=== PATIENT | male | born 1950 | race American Indian/Alaskan Native ===

== ENCOUNTER 2017-02-25 12:25 | Emergency (ER) | payer OTHER ==
[2017-02-25 12:36] VITALS: BP 145/93
[2017-02-25] MEDS ORDERED: MOTRIN PO ONE (13:03)
--- NOTE | 2017-02-25 13:28 | XRay Report ---
X-RAY LEFT HIP THREE VIEWS: 02/25/17 12:25:00 CLINICAL: Left hip pain. FINDINGS: Mild arthritis of the hips with superior acetabular eburnation and small superolateral osteophytes. No fracture or dislocation. Normal soft tissues. IMPRESSION: Mild hip arthritis.
--- NOTE | 2017-02-25 18:25 | Emergency Department Report ---
Entered by CEDRIC ZARAGOZA, acting as scribe for ANGELICA HILLS NP. ED Lower Extremity HPI - General Chief Complaint: Extremity Injury, Lower Stated Complaint: HIP PAIN LEFT Time Seen by Provider: 02/25/17 12:59 Source: patient Mode of arrival: Ambulatory Limitations: No Limitations - History of Present Illness Initial Comments: This is a 67 y/o male, nontoxic, well nourished in appearance, no acute signs of distress presents with left hip pain since yesterday. Patient states left hip pain started while lifting trash bag at work yesterday. Patient stated he works in [employer]. Patient denies any trauma or fall. Stated he was twisted holding a box to put it on a shelf and developed a sharp pain in the left hip. Denies numbness, tingling, deformity, chest pain, shortness of breath, abdominal pain, nausea or vomiting, swelling, bruising, discoloration, fever, chills, nausea and vomiting. Pain is described as sharp and 8/10 on a severity scale. Denies taking OTC meds. No alleviating factors but aggravated with weight bearing. NKDA. Patient is ambulatory. MD Complaint: other (left hip pain) Onset/Timin -: days(s) Place: work Severity: severe Severity scale (0 -10): 8 Improves With: nothing Worsens With: weight bearing Context: other (lifting and turning) Associated Symptoms: ambulatory. denies: snap/pop sensation, swelling, numbness , tingling, unable to bear weight, able to partially bear weight, other (fever, chills, nausea, vomiting, brusing, discoloration) - Related Data Previous Rx's Medication Instructions Recorded Last Taken Type Acetaminophen [Tylenol Arthritis] 650 mg PO Q6H #30 tablet.er 02/25/17 Unknown Rx Cyclobenzaprine [Flexeril] 10 mg PO TID PRN #15 tablet 02/25/17 Unknown Rx Allergies Allergy/AdvReac Type Severity Reaction Status Date / Time No Known Allergies Allergy Unverified 02/25/17 12:36 ED Review of Systems Comment: All other systems reviewed and negative Constitutional: denies: chills, fever Eyes: denies: eye pain, eye discharge, vision change ENT: denies: ear pain, throat pain Respiratory: denies: cough, shortness of breath, wheezing Cardiovascular: denies: chest pain, palpitations Endocrine: no symptoms reported Gastrointestinal: denies: nausea, vomiting Genitourinary: denies: urgency, dysuria Musculoskeletal: other (left hip pain). denies: joint swelling Skin: denies: change in color, other (bruising ) Neurological: denies: numbness, other (tingling) Psychiatric: denies: anxiety, depression Hematological/Lymphatic: denies: easy bleeding, easy bruising ED Past Medical Hx - Past Medical History Previous Medical History?: No - Surgical History Past Surgical History?: No - Social History Smoking Status: Current Every Day Smoker Substance Use Type: Alcohol - Medications Home Medications: Home Medications Medication Instructions Recorded Confirmed Last Taken Type Acetaminophen [Tylenol Arthritis] 650 mg PO Q6H #30 tablet.er 02/25/17 Unknown Rx Cyclobenzaprine [Flexeril] 10 mg PO TID PRN #15 tablet 02/25/17 Unknown Rx ED Physical Exam - General Limitations: No Limitations General appearance: alert, in no apparent distress - Head Head exam: Present: atraumatic, normocephalic, normal inspection - Eye Eye exam: Present: normal appearance, PERRL, EOMI. Absent: scleral icterus, conjunctival injection, nystagmus, periorbital swelling, periorbital tenderness Pupils: Present: normal accommodation - ENT ENT exam: Present: normal exam, normal orophraynx, TM's normal bilaterally, normal external ear exam - Neck Neck exam: Present: normal inspection, full ROM. Absent: tenderness, meningismus, lymphadenopathy, thyromegaly - Respiratory Respiratory exam: Present: normal lung sounds bilaterally. Absent: respiratory distress, wheezes, rales, rhonchi, stridor, chest wall tenderness, accessory muscle use, decreased breath sounds, prolonged expiratory - Cardiovascular Cardiovascular Exam: Present: regular rate, normal rhythm, normal heart sounds. Absent: bradycardia, tachycardia, irregular rhythm, systolic murmur, diastolic murmur, rubs, gallop - GI/Abdominal GI/Abdominal exam: Present: soft, normal bowel sounds. Absent: distended, tenderness, guarding, rebound, rigid, diminished bowel sounds - Rectal Rectal exam: Present: deferred - Extremities Exam Extremities exam: Present: normal inspection, full ROM, normal capillary refill. Absent: tenderness, pedal edema, joint swelling, calf tenderness - Expanded Lower Extremity Exam Left Hip exam: Present: normal inspection, full ROM, external rotation, internal rotation, pelvic stability. Absent: tenderness, swelling, abrasion, laceration , ecchymosis, deformity, crepidus, dislocation, erythema, shortening Upper Leg exam: Present: normal inspection, full ROM. Absent: tenderness, swelling, abrasion, laceration, ecchymosis, deformity, crepidus, dislocation, erythema Knee exam: Present: normal inspection, full ROM, full knee extension. Absent: tenderness, swelling, abrasion, laceration, ecchymosis, deformity, crepidus, dislocation, erythema, effusion, pain w/ pronation/supination, posterior draw sign, pain/laxity with valgus, pain/laxity with varus Lower Leg exam: Present: normal inspection, full ROM. Absent: tenderness, swelling, abrasion, laceration, ecchymosis, deformity, crepidus, dislocation, erythema, palpable cord, Demian's sign Ankle exam: Present: normal inspection, full ROM. Absent: tenderness, swelling , abrasion, laceration, ecchymosis, deformity, crepidus, dislocation, erythema, anterior draw sign Foot/Toe exam: Present: normal inspection, full ROM. Absent: tenderness, swelling, abrasion, laceration, ecchymosis, deformity, crepidus, dislocation, erythema, amputation, puncture wound, foreign body, calcaneal tenderness, tenderness at base of 5th metatarsal, nail avulsion, subungual hematoma Neuro vascular tendon exam: Present: no vascular compromise. Absent: pulse deficit, abnormal cap refill, motor deficit, sensory deficit, tendon deficit, extremity cold to touch, pallor, abnormal 2-point discrimination, decreased fine /light touch, foot drop, peroneal nerve deficit, significant pain with passive ROM of distal joint Gait: Positive: observed and normal - Back Exam Back exam: Present: normal inspection, full ROM. Absent: tenderness, CVA tenderness (R), CVA tenderness (L), muscle spasm, paraspinal tenderness, vertebral tenderness, rash noted - Neurological Exam Neurological exam: Present: alert, oriented X3, CN II-XII intact, normal gait, reflexes normal - Psychiatric Psychiatric exam: Present: normal affect, normal mood - Skin Skin exam: Present: warm, dry, intact, normal color. Absent: rash ED Course Vital Signs 02/25/17 12:31 Temperature 97.8 F Pulse Rate 92 H Respiratory 17 Rate Blood Pressure 145/93 O2 Sat by Pulse 100 Oximetry - Reevaluation(s) Reevaluation #1: 02/25/17 13:30 Patient is able to speak in full sentences with no signs of distress. ED Lower Extremity MDM - Medical Decision Making ED course; this is a 67-year-old male that presents with left hip strain/ arthritis 1- patient was examined myself. There is no deformity present or any abnormalities upon my exam. X-ray has been obtained and indicates arthritis of the left hip. Patient received ibuprofen in the ED. Patient notified of x-ray findings with no further questions noted by the patient. 2- examination reveals pain may be due to muscular strain/spasm. Patient be treated with acetaminophen and Flexeril. Patient was instructed not to operate any machinery while taking Flexeril due to sedation/drowsiness. 3- patient was instructed to follow up with Dr. Myers/primary care doctor in 3- 5 days or if symptoms worsen and continue such as numbness, tingling, joint swelling, redness, fever, chills, chest pain or shortness of breath return to emergency room as soon as possible. 4- patient also received crutches and educated how to use crutches by the nurse. ED Disposition Clinical Impression: Muscle strain Hip strain Qualifiers: Encounter type: initial encounter Laterality: left Qualified Code(s): S76.012A - Strain of muscle, fascia and tendon of left hip, initial encounter Disposition: - TO HOME OR SELFCARE Is pt being admited?: No Does the pt Need Aspirin: No Condition: Stable Instructions: Acetaminophen (By mouth), Cyclobenzaprine (By mouth), Crutch Instructions (ED), Hip Sprain (ED) Additional Instructions: follow up with Dr. Myers/primary care doctor in 3-5 days or if symptoms worsen and continue such as numbness, tingling, joint swelling, redness, fever, chills , chest pain or shortness of breath return to emergency room as soon as possible. Take Tylenol and Flexeril as prescribed. Do not operate heavy machinery while taking Flexeril due to sedation Prescriptions: Acetaminophen [Tylenol Arthritis] 650 mg PO Q6H #30 tablet.er Cyclobenzaprine [Flexeril] 10 mg PO TID PRN #15 tablet PRN Reason: Muscle Spasm Referrals: PRIMARY CARE, [Primary Care Provider] - 3-5 Days CHIARA AYALA MD [Staff Physician] - 3-5 Days [facility] [Outside] - 3-5 Days [facility] [Outside] - 3-5 Days Forms: Work/School Release Form(ED) This documentation as recorded by the MILA vogt ELIZABETH,accurately reflects the service I personally performed and the decisions made by ,ANGELICA HILLS, PRABHU.
== END 2017-02-25 14:33 | disposition home or self-care (01) ==
LOC: ED 12:25
DX: S76.012A Strain of muscle, fascia and tendon of left hip, initial encounter (principal); F17.200 Nicotine dependence, unspecified, uncomplicated; X50.0XXA Overexertion from strenuous movement or load, initial encounter; Y93.9 Activity, unspecified; Y92.9 Unspecified place or not applicable; Y99.9 Unspecified external cause status

== ENCOUNTER 2018-08-16 22:56 | Inpatient (IN) | payer MEDICAID, MEDICARE, OTHER ==
[2018-08-16] MEDS: SUBLIMAZE ONE ×2 (11:32→23:32)
[2018-08-16] MEDS: VERSED ONE ×2 (11:32→23:32)
[2018-08-16] MEDS ORDERED: MORPHINE IV ONE ×2 (23:00→23:18)
[2018-08-16] MEDS ORDERED: PLAVIX PO ONE (23:00)
[2018-08-16] MEDS ORDERED: HEPARIN IV ONE (23:00)
[2018-08-16] MEDS ORDERED: HEPARIN 10,000 UNITS/10 ML IV ONE ×2 (23:15→23:45)
[2018-08-16] MEDS ORDERED: NITROSTAT SL ONE (23:16)
[2018-08-16] MEDS: HEPARIN/ 0.45% NACL-25,000 UNIT/500 ML 25,000 UNIT/500 ML BAG IV SCH (23:18)
[2018-08-16 23:23] LABS: Hematocrit 44.7 % (35.5-45.6); Hemoglobin 14.5 gm/dl (11.8-15.2); Mean Corpuscular HGB Conc 32 % (32-34); Mean Corpuscular Volume 84 fl (84-94); Platelet Count 182 K/mm3 (140-440); Red Blood Count 5.32 M/mm3 (3.65-5.03); Red Cell Distribution Width 14.7 % (13.2-15.2)
[2018-08-16 23:31] LABS: INR 0.95 (0.87-1.13)
[2018-08-16] MEDS ORDERED: HEPARIN/NS 5000 UNIT/500ML(CATH LAB) 1,000 ML IR ONE (23:31)
[2018-08-16] MEDS ORDERED: XYLOCAINE 2% INFILTRATI ONE (23:31)
[2018-08-16] MEDS ORDERED: HEPARIN 10,000 UNITS/10 ML ONE (23:31)
[2018-08-16] MEDS ORDERED: NITROGLYCERIN SYRINGE 3 ML ONE (23:32)
[2018-08-16] MEDS ORDERED: NACL 0.9% 500 ML 500 ML ONE (23:32)
--- NOTE | 2018-08-16 23:32 | Emergency Department Report ---
ED Chest Pain HPI - General Chief Complaint: Chest Pain Stated Complaint: POSS STEMI Time Seen by Provider: 08/16/18 22:56 Source: EMS Mode of arrival: Stretcher Limitations: No Limitations - History of Present Illness Initial Comments: Patient is a 8-year-old male that presents emergency room with substernal chest pain that started 20 minutes prior to arrival. Patient brought in by EMS. Patient was given aspirin and nitroglycerin by EMS. Patient states the chest pain has improved a little bit. Patient states the chest pain as a 9 out of 10. Patient denies past medical history. Patient states he smokes. Patient denies shortness of breath. Patient denies chest pain radiating. Patient states the pain is better with medications and rest and worse with exertion. MD Complaint: chest pain -: Sudden Onset: during rest Pain Location: substernal Pain Radiation: none Severity: severe Severity scale (0 -10): 9 Quality: heaviness, sharp Consistency: constant Improves With: nitroglycerin, rest Worsens With: exertion re: diaphoresis. denies: nausea, vomting, dyspnea, sense of impending doom Other Symptoms: denies: cough, fever, syncope, rash, acid taste in mouth, leg swelling, palpitations, burping Treatments Prior to Arrival: aspirin, nitroglycerin, oxygen Aspirin use within the Past 7 Days: (0) No - Related Data On Oral Contraceptives: No Home Medications Medication Instructions Recorded Confirmed Last Taken Acetaminophen [Tylenol Arthritis] 650 mg PO Q6H 08/17/18 08/17/18 Unknown Motrin 200 MG tab 200 mg PO PRN 08/17/18 08/17/18 Unknown Previous Rx's Medication Instructions Recorded Last Taken Type Cyclobenzaprine [Flexeril] 10 mg PO TID PRN #15 tablet 02/25/17 03/23/16 08:00 Rx 10 mg Allergies Allergy/AdvReac Type Severity Reaction Status Date / Time No Known Allergies Allergy Verified 08/16/18 23:21 Heart Score - HEART Score History: Highly suspicious EKG: Significant ST-depression Age: > 65 Risk factors: 1-2 risk factors Troponin: < normal limit HEART Score: 7 ED Review of Systems ROS: Stated complaint: POSS STEMI Other details as noted in HPI Constitutional: denies: chills, fever Eyes: denies: eye pain, eye discharge, vision change ENT: denies: ear pain, throat pain Respiratory: denies: cough, shortness of breath, wheezing Cardiovascular: chest pain. denies: palpitations Endocrine: no symptoms reported Gastrointestinal: denies: abdominal pain, nausea, diarrhea Genitourinary: denies: urgency, dysuria Musculoskeletal: denies: back pain, joint swelling, arthralgia Skin: denies: rash, lesions Neurological: denies: headache, weakness, paresthesias Psychiatric: denies: anxiety, depression Hematological/Lymphatic: denies: easy bleeding, easy bruising ED Past Medical Hx - Past Medical History Previous Medical History?: No - Surgical History Past Surgical History?: No - Family History Family history: no significant - Social History Smoking Status: Current Every Day Smoker Substance Use Type: None - Medications Home Medications: Home Medications Medication Instructions Recorded Confirmed Last Taken Type Cyclobenzaprine [Flexeril] 10 mg PO TID PRN #15 tablet 02/25/17 08/17/18 09/0 08/07 08:00 Rx 10 mg Acetaminophen [Tylenol Arthritis] 650 mg PO Q6H 08/17/18 08/17/18 Unknown History Motrin 200 MG tab 200 mg PO PRN 08/17/18 08/17/18 Unknown History ED Physical Exam - General Limitations: No Limitations General appearance: alert, in no apparent distress - Head Head exam: Present: atraumatic, normocephalic - Eye Eye exam: Present: normal appearance - ENT ENT exam: Present: mucous membranes moist - Neck Neck exam: Present: normal inspection - Respiratory Respiratory exam: Present: normal lung sounds bilaterally. Absent: respiratory distress - Cardiovascular Cardiovascular Exam: Present: regular rate, normal rhythm. Absent: systolic mu rmur, diastolic murmur, rubs, gallop - GI/Abdominal GI/Abdominal exam: Present: soft, normal bowel sounds - Rectal Rectal exam: Present: deferred - Extremities Exam Extremities exam: Present: normal inspection - Back Exam Back exam: Present: normal inspection - Neurological Exam Neurological exam: Present: alert, oriented X3 - Psychiatric Psychiatric exam: Present: normal affect, normal mood - Skin Skin exam: Present: warm, dry, intact, normal color. Absent: rash ED Course Vital Signs 08/16/18 08/16/18 08/16/18 23:02 23:14 23:18 Temperature Pulse Rate 69 65 Respiratory 25 H 25 H 18 Rate Blood Pressure 107/70 123/91 Blood Pressure 106/70 [Right] O2 Sat by Pulse 100 Oximetry 08/17/18 01:00 Temperature 97.6 F Pulse Rate Respiratory Rate Blood Pressure Blood Pressure [Right] O2 Sat by Pulse Oximetry - Reevaluation(s) Reevaluation #1: Call received from EMS for possible STEMI. EKG was transmitted. EKG findings are consistent with STEMI. STEMI team activated. Discussed case with fire equipment inspector helper. 08/16/18 22:50 Initial assessment. Patient's findings consistent with STEMI. Patient given STEMI protocol meds. 08/16/18 22:56 Patient states pain has improved. Vital signs monitor throughout. 08/16/18 23:00 Patient transported to Disability Rater. 08/16/18 23:15 - Consultations Consultation #1: EKG from EMS sent via text to Dr. Arevalo, interventional cardiology. Dr arevalo agrees with assessment of Stemi. 08/16/18 22:50 Consultation #2: Os was consulted for admission. Hospitalist to assume care patient after cath. 08/16/18 23:34 VISHNU score - Vishnu Score Age > 65: (1) Yes Aspirin use within the Past 7 Days: (0) No 3 or more CAD Risk Factors: (0) No 2 or more Angina events in past 24 hrs: (0) No Known CAD with more than 50% Stenosis: (0) No Elevated Cardiac Markers: (0) No ST Deviation Greater than 0.5mm: (1) Yes VISHNU Score: 2 ED Medical Decision Making - Lab Data Result diagrams: 08/16/18 23:10 08/16/18 23:10 - EKG Data -: EKG Interpreted by Vt EKG shows normal: sinus rhythm, axis, intervals, QRS complexes Rate: bradycardia - EKG Data Interpretation: acute [place] - Medical Decision Making Patient's 8-year-old male who presents to emergency room for chest pain. Patient found have a STEMI. STEMI team initiated prior to arrival. Patient transferred to produce laborer. construction skills teacher consult. Patient given STEMI protocol medications. Cardiology was involved early. Discussed plan of c are with patient and family. - Differential Diagnosis STEMI. Chest pain. Critical Care Time: Yes Critical care attestation.: If time is entered above; I have spent that time in minutes in the direct care of this critically ill patient, excluding procedure time. Critical Care Time: 45 minutes ED Disposition Clinical Impression: Chest pain Qualifiers: Chest pain type: unspecified Qualified Code(s): R07.9 - Chest pain, unspecified STEMI (ST elevation myocardial infarction) Qualifiers: Involved coronary artery: unspecified coronary artery Qualified Code(s): I21.3 - ST elevation (STEMI) myocardial infarction of unspecified site Disposition: 09 OP ADMIT IP TO THIS HOSP Is pt being admited?: Yes Does the pt Need Aspirin: No Condition: Critical Time of Disposition: 23:34
[2018-08-16] MEDS ORDERED: ADRENALIN ONE (23:44)
[2018-08-16] MEDS ORDERED: XYLOCAINE CARDIAC IV ONE (23:44)
[2018-08-16] MEDS ORDERED: ATROPINE 0.1% (CARDIAC) ONE (23:44)
[2018-08-16] MEDS ORDERED: NEO SYNEPHRINE/NS Syringe(OR USE) IV ONE (23:44)
[2018-08-16] MEDS ORDERED: AGGRASTAT DRIP (12.5 MG/250 ML) 12,500 MCG/250 ML BAG IV ONE (23:53)
[2018-08-16] MEDS ORDERED: CORDARONE IV ONE (23:57)
[2018-08-16] MEDS ORDERED: NACL 0.9% 100 ML ONE (23:58)
[2018-08-17] MEDS ORDERED: HEPARIN/NS 5000 UNIT/500ML(CATH LAB) 500 ML IR ONE (00:06)
[2018-08-17 00:12] LABS: Alanine Aminotransferase 24 units/L (7-56); Albumin 4.3 g/dL (3.9-5); BUN/Creatinine Ratio 15; Blood Urea Nitrogen 17 mg/dL (9-20); Calcium 9.5 mg/dL (8.4-10.2); Hemolysis Index 65
--- NOTE | 2018-08-17 01:03 | History and Physical Report ---
REASON FOR ADMISSION: STEMI. HISTORY OF PRESENT ILLNESS: The patient is a pleasant 68-year-old -[place] gentleman with 1 hour of chest pain, who presents to the Emergency Room and found to have anterior ST elevation. He has some nausea and lightheadedness. No previous episodes of chest pain. He is not plugged in the medical system. Does not have a primary care doctor. Does smoke. Unclear about medical problems. ALLERGIES: No known drug, food, or environmental allergies. Currently, the patient was given heparin, Plavix, and aspirin in the Emergency Room and pain is improved; however, the patient is significantly uncomfortable upon interview. No hematochezia, melena, hemoptysis, rashes, fevers, or chills. No abdominal pain, no bleeding. PAST MEDICAL HISTORY: As aforementioned. REVIEW OF SYSTEMS: As aforementioned. FAMILY HISTORY: No family history of premature heart disease. He is emigrated from [place]. SOCIAL HISTORY: Positive for tobacco abuse. PHYSICAL EXAMINATION: VITAL SIGNS: Blood pressure is 100/60, heart rates sinus rhythm in the 50s and 60s. He is afebrile. O2 sat is 99% on room air. HEENT: Sclerae are anicteric. PERRLA. NECK: Supple. No mass or JVD. CHEST: Clear to auscultation bilaterally. Good air movement. CARDIOVASCULAR: Regular rate and rhythm, S1, S2. ABDOMEN: Soft, nontender, nondistended. Normoactive bowel sounds in all 4 quadrants. No mass or bruits. EXTREMITIES: No cyanosis, clubbing, or edema. Good peripheral pulses. SKIN: Intact. No rashes. DATA: EKG shows anterior ST elevation. Labs are pending. ASSESSMENT: In summary, the patient is a pleasant 68-year-old -[place] gentleman who presents with 1 hour of chest pain. EKG findings consistent with anterior ST elevation myocardial infarction. The patient is to be loaded with aspirin, Plavix, heparin. STEMI protocol was initiated. Further plans contingent on laborer stores course. JOB# [id number] SBM/NTS
--- NOTE | 2018-08-17 02:22 | Cardiac Catherization Report ---
INDICATION FOR PROCEDURE: The patient presents with anterior ST elevation myocardial infarction. PROCEDURE IN DETAIL: The patient was brought to the aquatic laborer in an urgent fashion, prepped and draped, 8 mL of 2% lidocaine used to anesthetize the right groin. He is mildly bradycardic and hypotensive. Venous and arterial sheaths were placed in the right groin via modified Seldinger technique. First, we used a balloon tipped pacemaker placed in the right ventricle under fluoroscopic guidance. Baseline heart rate set at 50. Next, we turned our attention to the left heart cath. A JR4 catheter used to cross the aortic valve under fluoroscopic guidance. Left ventriculography performed in 30 degree LUNA projection. Next, catheter flushed. Manual pullback performed with continuous pressure monitoring. Catheter used to engage the right coronary. No dampening or ventricularization. Cineangiography performed in all projections. Next, an EBU 3.75 guide used to engage the left main. No dampening or ventricularization. Cineangiography performed in all projections. FINDINGS: CORONARY ANATOMY: Right coronary is without significant disease, courses AV groove, distally bifurcates the posterior descending and posterolateral branches. The left main is without significant disease, bifurcates the left anterior descending and left circumflex. Left circumflex is without significant disease, gives off high OM trunk and a true AV groove circ. No significant disease. LAD is occluded proximally with angiographic findings consistent with atherothrombosis. Left ventriculography reveals severe anterior, anteroapical, and inferior apical hypokinesis/dyskinesis. Ejection fraction estimated at 15-20%. Aortic pressure is 120/70. LV pressure is 120, LVEDP of 22 mmHg. At this point, we obviously turned our attention to the LAD. Heparin has already been loaded. Aspirin and Plavix have been loaded. Abnormal ACT is confirmed. I used a Prowater wire to cross the lesion without difficulty. I used a 2.5 x 12 balloon to predilate the lesion. Significant thrombus burden is noted. I used a manual thrombectomy [place] catheter. Multiple passes were made. Improved thrombus characteristics were noted. Next, I used a 3.5 x 30 Resolute [place] drug-eluting stent deployed at 12 AMELIA for 30 seconds. Excellent angiographic result. Next, I used intravascular ultrasound and multiple passes were made, which revealed a well apposed and well expanded stent throughout. The remainder of the LAD distal and proximal without significant disease. Left main without significant disease. No evidence of dissection or complication. Final angiogram reveals excellent result. No complications. The patient is clinically improved, but due to severe cardiomyopathy, borderline hypotension, proximal LAD, large area of myocardium at risk, I placed an intraaortic balloon pump under fluoroscopic guidance after changing to a 7-Stateless sheath. The patient remained in sinus rhythm without dysrhythmias throughout. The temporary pacemaker was removed after watching the patient for some 30 minutes. The patient is now clinically and electrically stable and improved. We will start the heparin drip. Continue aspirin, Plavix, statin therapy, bed rest overnight. I directly supervised the administration of moderate sedation from 11:30 to 12:08 CONCLUSIONS: 1. 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 2. Successful IVUS guided and thrombectomy assisted PCI of the proximal LAD with placement of a drug-eluting stent (Jos 3.5 x 30) with excellent final angiographic and ultrasonographic results, 0% residual stenosis and VISNHU 3 flow. 3. No other significant disease in the coronary tree. 4. Severe anterior, anteroapical, and inferoapical dyskinesis/akinesis with estimated ejection fraction of 15-20% with high normal LVEDP. 5. Successful fluoroscopic-guided placement of temporary venous pacemaker. At this point, the patient is clinically and electrically improved. We will admit to ICU, bed rest, heparin drip, aspirin, Plavix, statin therapy. We will consider removal of intraaortic balloon pump in a.m. depending on his clinical status, low-dose heparin drip. We will monitor closely. Results of procedure explained to the patient and family. All questions and concerns were addressed. JOB# [id number] SBJoesph/LAURY
[2018-08-17] MEDS ORDERED: MORPHINE ONE (02:25)
[2018-08-17 03:05] LABS: Band Neutrophils # (Manual) 0.2 K/mm3; Basophils % (Manual) 0 % (0.0-1.8); Eosinophils % (Manual) 0 % (0.0-4.3); Total Cells Counted 100
[2018-08-17 03:06] LABS: Anisocytosis 1+
[2018-08-17 06:13] LABS: Amphetamine Screen,Urine PRESUMPTIVE NEGATIVE; Cannabinoid Screen,Urine PRESUMPTIVE NEGATIVE; Cocaine Screen,Urine PRESUMPTIVE NEGATIVE; Methadone Screen,Urine PRESUMPTIVE NEGATIVE; Opiate Screen,Urine PRESUMPTIVE NEGATIVE
[2018-08-17 06:25] LABS: Benzodiazepines Screen,Urine PRESUMPTIVE POSITIVE
--- NOTE | 2018-08-17 07:54 | Progress Note ---
Assessment and Plan H and P, cath report dictated. Pt is revisited in CCU and doing well. Course and plan of care d/w pt, family, and rn. Will pull IABP at 1p, hold heparin at noon and 1:2. Subjective Date of service: 08/17/18 Objective Vital Signs Temp Pulse Resp BP BP Pulse Ox 08/17/18 06:50 59 L 8 L 146/68 100 08/17/18 06:40 55 L 11 L 148/77 100 08/17/18 06:30 59 L 10 L 148/77 100 08/17/18 06:20 68 14 148/80 100 08/17/18 06:10 61 13 140/78 100 08/17/18 06:09 98.8 F 59 L 12 146/68 08/17/18 06:00 58 L 10 L 140/78 08/17/18 05:50 59 L 11 L 132/69 100 08/17/18 05:40 57 L 9 L 145/79 100 08/17/18 05:30 58 L 10 L 145/79 100 08/17/18 05:20 62 9 L 144/62 100 08/17/18 05:10 60 7 L 133/77 08/17/18 05:00 56 L 9 L 133/77 08/17/18 04:58 98.8 F 59 L 12 146/68 08/17/18 04:55 100 08/17/18 04:50 59 L 8 L 137/72 100 08/17/18 04:41 12 100 08/17/18 04:40 64 8 L 136/73 08/17/18 04:30 64 9 L 136/73 100 08/17/18 04:20 58 L 8 L 134/78 100 08/17/18 04:11 98.8 F 58 L 12 134/78 08/17/18 04:10 68 13 126/70 100 08/17/18 04:00 59 L 9 L 126/70 08/17/18 03:50 98.8 F 58 L 8 L 124/65 100 08/17/18 03:40 58 L 9 L 122/71 100 08/17/18 03:30 58 L 8 L 122/71 100 08/17/18 03:21 65 08/17/18 03:20 63 8 L 126/67 100 08/17/18 03:10 65 11 L 122/63 100 08/17/18 03:07 97.6 F 58 L 12 122/71 100 08/17/18 03:00 61 10 L 122/63 100 08/17/18 02:50 61 8 L 119/64 100 08/17/18 02:40 58 L 7 L 132/61 100 08/17/18 02:30 61 9 L 132/61 100 08/17/18 02:20 63 10 L 128/63 100 08/17/18 02:10 97.6 F 63 13 136/65 100 08/17/18 02:08 97.6 F 58 L 12 122/71 100 08/17/18 02:00 60 9 L 136/65 100 08/17/18 01:50 65 12 126/82 99 08/17/18 01:40 64 14 130/71 100 08/17/18 01:30 63 11 L 130/71 97 08/17/18 01:20 62 11 L 135/75 98 08/17/18 01:10 97.6 F 66 13 135/74 97 08/17/18 01:08 65 15 96 08/17/18 01:00 97.6 F 08/16/18 23:18 65 18 123/91 08/16/18 23:14 25 H 08/16/18 23:02 69 25 H 107/70 106/70 100 - Labs and Meds Cardiac Enzymes 08/16/18 Range/Units 23:10 AST 24 (5-40) units/L Coagulation 08/16/18 Range/Units 23:10 PT 13.1 (12.2-14.9) Sec. INR 0.95 (0.87-1.13) APTT 33.0 (24.2-36.6) Sec. CBC 08/16/18 Range/Units 23:10 WBC 8.3 (4.5-11.0) K/mm3 RBC 5.32 H (3.65-5.03) M/mm3 Hgb 14.5 (11.8-15.2) gm/dl Hct 44.7 (35.5-45.6) % Plt Count 182 (140-440) K/mm3 Comprehensive Metabolic Panel 08/16/18 Range/Units 23:10 Sodium 148 H (137-145) mmol/L Potassium 4.1 (3.6-5.0) mmol/L Chloride 113.8 H (98-107) mmol/L Carbon Dioxide 21 L (22-30) mmol/L BUN 17 (9-20) mg/dL Creatinine 1.1 (0.8-1.5) mg/dL Glucose 90 (75-100) mg/dL Calcium 9.5 (8.4-10.2) mg/dL AST 24 (5-40) units/L ALT 24 (7-56) units/L Alkaline Phosphatase 107 (35-129) units/L Total Protein 6.9 (6.3-8.2) g/dL Albumin 4.3 (3.9-5) g/dL
[2018-08-17] MEDS: ECOTRIN PO SCH (09:34)
--- NOTE | 2018-08-17 11:30 | Consultation ---
History of Present Illness - Reason for Consult Consult date: 08/17/18 Requesting physician: LINDA STEEN - History of Present Illness Patient is a 68-year-old male that presents emergency room with substernal chest pain that started 20 minutes prior to arrival. Patient brought in by EMS. Patient was given aspirin and nitroglycerin by EMS. Patient states the chest pain has improved a little bit. Patient states the chest pain as a 9 out of 10. Patient denies past medical history. Patient states he smokes. Patient denies shortness of breath. Patient denies chest pain radiating. Patient states the pain is better with medications and rest and worse with exertion. The patient was taken emergently to the catheterization laboratory technician and found to have acute atherothrombotic o cclusion of the proximal LAD with anterior ST elevation [place]. Patient had successful PCI and drug-eluting stent of the LAD. No other significant disease noted in the coronary tree. Patient was also noted to have severe anterior, anterior apical and inferior apical dyskinesis/akinesis with an estimated EF of 15-20%. Patient has been admitted to the ICU for a two-year treatment and intra-aortic balloon pump. Past History Past Medical History: No medical history Past Surgical History: No surgical history Social history: no significant social history Family history: no significant family history Medications and Allergies Allergies Allergy/AdvReac Type Severity Reaction Status Date / Time No Known Allergies Allergy Verified 08/16/18 23:21 Home Medications Medication Instructions Recorded Confirmed Last Taken Type Cyclobenzaprine [Flexeril] 10 mg PO TID PRN #15 tablet 02/25/17 08/17/18 08:00 Rx 10 mg Acetaminophen [Tylenol Arthritis] 650 mg PO Q6H 08/17/18 08/17/18 Unknown History Motrin 200 MG tab 200 mg PO PRN 08/17/18 08/17/18 Unknown History Active Meds: Active Medications Aspirin (Ecotrin) 325 mg PO QDAY DER[facility] Last Admin: 08/17/18 09:34 Dose: 325 mg Documented by: Atorvastatin Calcium (Lipitor) 40 mg PO QHS DERICK Clopidogrel Bisulfate (Plavix) 75 mg PO QDAY [facility] Heparin Sodium/Sodium Chloride (Heparin/ 0.45% Nacl-25,000 Unit/500 Ml) 25,000 unit in 500 mls @ 18 mls/hr IV TITRATE DERICK; Protocol Last Titration: 08/17/18 07:48 Dose: 13.57 units/kg/hr, 17 mls/hr Documented by: Review of Systems All systems: negative Exam - Constitutional Vitals: Temp Pulse Resp BP Pulse Ox 97.3 F L 62 9 L 148/78 100 08/17/18 10:00 08/17/18 10:40 08/17/18 10:40 08/17/18 10:40 08/17/18 10:40 General appearance: Present: no acute distress, well-nourished - EENT Eyes: Present: PERRL ENT: hearing intact, clear oral mucosa - Neck Neck: Present: supple, normal ROM - Respiratory Respiratory effort: normal Respiratory: bilateral: CTA - Cardiovascular Heart Sounds: Present: S1 & S2. Absent: rub, click - Extremities Extremities: pulses symmetrical, No edema Peripheral Pulses: within normal limits - Abdominal General gastrointestinal: Present: soft, non-tender, non-distended, normal bowel sounds Male genitourinary: Present: normal - Integumentary Integumentary: Present: clear, warm, dry - Musculoskeletal Musculoskeletal: gait normal, strength equal bilaterally - Psychiatric Psychiatric: appropriate mood/affect, intact judgment & insight - Neurologic Neurologic: CNII-XII intact, moves all extremities Results - Labs CBC & Chem 7: 08/16/18 23:10 08/16/18 23:10 Labs: Abnormal lab results 08/16/18 08/16/18 08/17/18 Range/Units 23:10 23:10 04:41 RBC 5.32 H (3.65-5.03) M/mm3 MCH 27 L (28-32) pg Lymphocytes % (Manual) 39.0 H (13.4-35.0) % Heparin Anti-Xa Level 1.23 H (0.3-0.7) U.I./ml Sodium 148 H (137-145) mmol/L Chloride 113.8 H (98-107) mmol/L Carbon Dioxide 21 L (22-30) mmol/L Assessment and Plan Acute coronary syndrome. The patient was taken emergently to the catheterization laboratory technician and found to have acute atherothrombotic occlusion of the proximal LAD with anterior ST elevation [place]. Patient had successful PCI and drug-eluting stent of the LAD. No other significant disease noted in the coronary tree. Patient was also noted to have severe anterior, anterior apical and inferior apical dyskinesis/akinesis with an estimated EF of 15-20%. Patient has been admitted to the ICU for a two- year treatment and intra-aortic balloon pump. Continue heparin drip, aspirin, Plavix and statin therapy. Cardiology following. Check lipid profile. Hypertension. Continue antibiotics as medications. Mild Hypernatremia. Follow-up BMP.
[2018-08-17] MEDS ORDERED: ALUM-MAG HYDROX-SIMETH 200-200-20MG/5ML PO ONE (12:00)
[2018-08-17] MEDS: MORPHINE IV PRN (12:04)
--- NOTE | 2018-08-17 13:13 | Consultation ---
History of Present Illness Consult date: 08/17/18 Requesting physician: LINDA STEEN Reason for consult: chest pain, other (STEMI) History of present illness: 68 yo without significant PMH, developed acute onset chest pain x 1 hour w/ some nausea, presented to ED and found to have STEMI, underwent LHC with PCI to LAD. He is feeling better now. Had very mild chest pain and just received some Morphine. Denies SOB, cough, sputum, hemoptysis. Active Medications Aspirin (Ecotrin) 325 mg PO QDAY [facility] Last Admin: 08/17/18 09:34 Dose: 325 mg Documented by: Atorvastatin Calcium (Lipitor) 40 mg PO QHS DERICK Clopidogrel Bisulfate (Plavix) 75 mg PO QDAY DERICK Heparin Sodium/Sodium Chloride (Heparin/ 0.45% Nacl-25,000 Unit/500 Ml) 25,000 unit in 500 mls @ 18 mls/hr IV TITRATE DERICK; Protocol Last Titration: 08/17/18 07:48 Dose: 13.57 units/kg/hr, 17 mls/hr Documented by: Morphine Sulfate (Morphine) 1 mg IV Q4H PRN PRN Reason: Pain, Moderate Last Admin: 08/17/18 12:04 Dose: 1 mg Documented by: Past History Past Medical History: No medical history Past Surgical History: No surgical history Social history: smoking, full code. denies: alcohol abuse, prescription drug abuse, IV drug use Family history: other (No pulm issues reported) Medications and Allergies Allergies Allergy/AdvReac Type Severity Reaction Status Date / Time No Known Allergies Allergy Verified 08/16/18 23:21 Home Medications Medication Instructions Recorded Confirmed Last Taken Type Cyclobenzaprine [Flexeril] 10 mg PO TID PRN #15 tablet 02/25/17 08/17/18 03/23/16 08:00 Rx 10 mg Acetaminophen [Tylenol Arthritis] 650 mg PO Q6H 08/17/18 08/17/18 Unknown History Motrin 200 MG tab 200 mg PO PRN 08/17/18 08/17/18 Unknown History Active Meds: Active Medications Aspirin (Ecotrin) 325 mg PO QDAY [facility] Last Admin: 08/17/18 09:34 Dose: 325 mg Documented by: Atorvastatin Calcium (Lipitor) 40 mg PO QHS DERICK Clopidogrel Bisulfate (Plavix) 75 mg PO QDAY [facility]ER[facility] Heparin Sodium/Sodium Chloride (Heparin/ 0.45% Nacl-25,000 Unit/500 Ml) 25,000 unit in 500 mls @ 18 mls/hr IV TITRATE DERICK; Protocol Last Titration: 08/17/18 07:48 Dose: 13.57 units/kg/hr, 17 mls/hr Documented by: Morphine Sulfate (Morphine) 1 mg IV Q4H PRN PRN Reason: Pain, Moderate Last Admin: 08/17/18 12:04 Dose: 1 mg Documented by: Review of Systems All systems: negative Physical Examination Vital signs: Vital Signs Pulse Resp BP Pulse Ox 69 25 H 106/70 100 08/16/18 23:02 08/16/18 23:02 08/16/18 23:02 08/16/18 23:02 General appearance: no acute distress, alert Eyes: non-icteric ENT: oropharynx moist Neck: supple Effort: normal Ascultation: Bilateral: clear Cardiovascular: regular rate and rhythm (no mrg) Gastrointestinal: normoactive bowel sounds, soft, non-tender, non-distended Integumentary: normal Extremities: no cyanosis, no edema, pink and warm normal mental status, non-focal exam, pupils equal and round, CN II-XII normal mood appropriate, affect normal Results - Laboratory Findings CBC and BMP: 08/16/18 23:10 08/16/18 23:10 PT/INR, D-dimer PT 13.1 Sec. (12.2-14.9) 08/16/18 23:10 INR 0.95 (0.87-1.13) 08/16/18 23:10 Abnormal lab findings: Abnormal Labs 08/16/18 08/16/18 08/17/18 23:10 23:10 04:41 RBC 5.32 H MCH 27 L Lymphocytes % (Manual) 39.0 H Heparin Anti-Xa Level 1.23 H Sodium 148 H Chloride 113.8 H Carbon Dioxide 21 L Assessment and Plan Imp: 1. STEMI 2. CAD 3. Ischemic cardiomyopathy 4. Chronic nicotine dependence, cigarettes 5. Hypernatremia Rec: 1. Heparin, Plavix, etc. as per cardiology 2. Check CXR 3. Stop smoking, counseled 4. Repeat labs in AM 5. Pulm-g[place] stable Plan of care reviewed w/ patient, he understands/agrees Thanks for the consult.
[2018-08-17] MEDS ORDERED: ZOFRAN ONE (14:34)
[2018-08-17 14:47] LABS: Chol/HDL Ratio 3.61 %
[2018-08-17] MEDS ORDERED: ZOFRAN IV PRN (14:54)
[2018-08-17] MEDS ORDERED: PLAVIX ONE (15:16)
[2018-08-17] MEDS ORDERED: HEPARIN/ 0.45% NACL-25,000 UNIT/500 ML ONE (15:16)
[2018-08-17] MEDS ORDERED: HEPARIN 10,000 UNITS/10 ML ONE (15:16)
--- NOTE | 2018-08-17 17:55 | XRay Report ---
FINAL REPORT EXAM: XR CHEST 1V AP HISTORY: Chest pain TECHNIQUE: upright single view chest PRIORS: None. FINDINGS: Cardiac and mediastinal contours are unremarkable. No focal pulmonary infiltrate is identified. No pleural fluid collection seen. Pulmonary vasculature is unremarkable. IMPRESSION: Negative single-view chest
[2018-08-18] MEDS: FLONASE NS SCH ×2 (02:05→10:00)
[2018-08-18 03:31] LABS: Basophils # (Auto) 0.1 K/mm3 (0.0-0.1); Basophils % (Auto) 0.7 % (0.0-1.8); Eosinophils # (Auto) 0.1 K/mm3 (0.0-0.4); Eosinophils % (Auto) 0.9 % (0.0-4.3); Hematocrit 42.2 % (35.5-45.6); Hemoglobin 13.9 gm/dl (11.8-15.2); Lymphocytes # (Auto) 2.1 K/mm3 (1.2-5.4); Lymphocytes % (Auto) 28.8 % (13.4-35.0); Mean Corpuscular HGB Conc 33 % (32-34); Mean Corpuscular Volume 84 fl (84-94); Monocytes # (Auto) 0.6 K/mm3 (0.0-0.8); Monocytes % (Auto) 8.2 % (0.0-7.3); Red Blood Count 5.05 M/mm3 (3.65-5.03); Red Cell Distribution Width 14.6 % (13.2-15.2)
[2018-08-18 03:54] LABS: BUN/Creatinine Ratio 10; Blood Urea Nitrogen 9 mg/dL (9-20); Calcium 8.5 mg/dL (8.4-10.2); Creatine Kinase MB 125.9 ng/mL (0.0-4.0); Hemolysis Index 9
[2018-08-18 04:21] LABS: Platelet Count 116 K/mm3 (140-440)
[2018-08-18] MEDS: ECOTRIN PO SCH ×2 (08:26→12:38)
[2018-08-18] MEDS: MORPHINE IV PRN (08:27)
[2018-08-18 09:44] LABS: INR 1.01 (0.87-1.13)
[2018-08-18 09:45] LABS: Partial Thromboplastin Time 47.2 Sec. (24.2-36.6)
[2018-08-18 09:55] LABS: Alanine Aminotransferase 56 units/L (7-56); Albumin 3.9 g/dL (3.9-5); BUN/Creatinine Ratio 10; Blood Urea Nitrogen 10 mg/dL (9-20); Calcium 8.6 mg/dL (8.4-10.2); Hemolysis Index 20
[2018-08-18 10:11] LABS: Creatine Kinase MB 97.4 ng/mL (0.0-4.0)
[2018-08-18 10:14] LABS: Basophils % (Auto) 0.5 % (0.0-1.8); Eosinophils # (Auto) 0.1 K/mm3 (0.0-0.4); Eosinophils % (Auto) 1.3 % (0.0-4.3); Hemoglobin 14.8 gm/dl (11.8-15.2); Lymphocytes # (Auto) 2.1 K/mm3 (1.2-5.4); Lymphocytes % (Auto) 28.3 % (13.4-35.0); Mean Corpuscular HGB Conc 33 % (32-34); Mean Corpuscular Volume 83 fl (84-94); Monocytes # (Auto) 0.6 K/mm3 (0.0-0.8); Monocytes % (Auto) 7.9 % (0.0-7.3); Platelet Count 131 K/mm3 (140-440); Red Blood Count 5.44 M/mm3 (3.65-5.03); Red Cell Distribution Width 14.7 % (13.2-15.2)
[2018-08-18] MEDS: PLAVIX PO SCH (11:00)
--- NOTE | 2018-08-18 11:55 | Progress Note ---
Assessment and Plan Assessment and plan: Acute coronary syndrome. The patient was taken emergently to the syrup machine laborer and found to have acute atherothrombotic occlusion of the proximal LAD with anterior ST elevation [place]. Patient had successful PCI and drug-eluting stent of the LAD. No other significant disease noted in the coronary tree. Patient was also noted to have severe anterior, anterior apical and inferior apical dyskinesis/akinesis with an estimated EF of 15-20%. Continue heparin drip, aspirin, Plavix and statin therapy. Cardiology following. Coronary artery disease. As above. Ischemic cardiomyopathy. As above. Hypertension. Continue antibiotics as medications. Mild Hypernatremia. Follow-up BMP. Nicotine dependence. Smoking cessation counseling. History Interval history: No new issues overnight. Patient denies chest pain. Hospitalist Physical - Constitutional Vitals: Temp Pulse Resp BP Pulse Ox 97.1 F L 64 11 L 110/67 96 08/18/18 04:00 08/18/18 06:00 08/18/18 06:00 08/18/18 06:00 08/18/18 06:00 General appearance: Present: no acute distress, well-nourished - EENT Eyes: Present: PERRL, EOM intact ENT: hearing intact, clear oral mucosa, dentition normal - Neck Neck: Present: supple, normal ROM - Respiratory Respiratory effort: normal Respiratory: bilateral: CTA - Cardiovascular Rhythm: regular Heart Sounds: Present: S1 & S2. Absent: gallop, rub - Extremities Extremities: no ischemia, No edema, Full ROM - Abdominal General gastrointestinal: soft, non-tender, non-distended, normal bowel sounds - Integumentary Integumentary: Present: clear, warm, dry - Neurologic Neurologic: CNII-XII intact, moves all extremities Results - Labs CBC & Chem 7: 08/18/18 09:26 08/18/18 09:26 Labs: Laboratory Last Values WBC 7.3 K/mm3 (4.5-11.0) 08/18/18 09:26 RBC 5.44 M/mm3 (3.65-5.03) H 08/18/18 09:26 Hgb 14.8 gm/dl (11.8-15.2) 08/18/18 09:26 Hct 45.0 % (35.5-45.6) 08/18/18 09:26 MCV 83 fl (84-94) L 08/18/18 09:26 MCH 27 pg (28-32) L 08/18/18 09:26 MCHC 33 % (32-34) 08/18/18 09:26 RDW 14.7 % (13.2-15.2) 08/18/18 09:26 Plt Count 131 K/mm3 (140-440) L 08/18/18 09:26 Lymph % (Auto) 28.3 % (13.4-35.0) 08/18/18 09:26 [place] % (Auto) 7.9 % (0.0-7.3) H 08/18/18 09:26 Eos % (Auto) 1.3 % (0.0-4.3) 08/18/18 09:26 Baso % (Auto) 0.5 % (0.0-1.8) 08/18/18 09:26 Lymph # 2.1 K/mm3 (1.2-5.4) 08/18/18 09:26 [place] # 0.6 K/mm3 (0.0-0.8) 08/18/18 09:26 Eos # 0.1 K/mm3 (0.0-0.4) 08/18/18 09:26 Baso # 0.0 K/mm3 (0.0-0.1) 08/18/18 09:26 Add Manual Diff Complete 08/16/18 23:10 Total Counted 100 08/16/18 23:10 Seg Neutrophils % 62.0 % (40.0-70.0) 08/18/18 09:26 Seg Neuts % (Manual) 51.0 % (40.0-70.0) 08/16/18 23:10 Band Neutrophils % 3.0 % 08/16/18 23:10 Lymphocytes % (Manual) 39.0 % (13.4-35.0) H 08/16/18 23:10 Reactive Lymphs % (Man) 0 % 08/16/18 23:10 Monocytes % (Manual) 7.0 % (0.0-7.3) 08/16/18 23:10 Eosinophils % (Manual) 0 % (0.0-4.3) 08/16/18 23:10 Basophils % (Manual) 0 % (0.0-1.8) 08/16/18 23:10 Metamyelocytes % 0 % 08/16/18 23:10 Myelocytes % 0 % 08/16/18 23:10 Promyelocytes % 0 % 08/16/18 23:10 Blast Cells % 0 % 08/16/18 23:10 Nucleated RBC % Not Reportable 08/16/18 23:10 Seg Neutrophils # 4.5 K/mm3 (1.8-7.7) 08/18/18 09:26 Seg Neutrophils # Man 4.2 K/mm3 (1.8-7.7) 08/16/18 23:10 Band Neutrophils # 0.2 K/mm3 08/16/18 23:10 Lymphocytes # (Manual) 3.2 K/mm3 (1.2-5.4) 08/16/18 23:10 Abs React Lymphs (Man) 0.0 K/mm3 08/16/18 23:10 Monocytes # (Manual) 0.6 K/mm3 (0.0-0.8) 08/16/18 23:10 Eosinophils # (Manual) 0.0 K/mm3 (0.0-0.4) 08/16/18 23:10 Basophils # (Manual) 0.0 K/mm3 (0.0-0.1) 08/16/18 23:10 Metamyelocytes # 0.0 K/mm3 08/16/18 23:10 Myelocytes # 0.0 K/mm3 08/16/18 23:10 Promyelocytes # 0.0 K/mm3 08/16/18 23:10 Blast Cells # 0.0 K/mm3 08/16/18 23:10 WBC Morphology Not Reportable 08/16/18 23:10 Hypersegmented Neuts Not Reportable 08/16/18 23:10 Hyposegmented Neuts Not Reportable 08/16/18 23:10 Hypogranular Neuts Not Reportable 08/16/18 23:10 Smudge Cells Not Reportable 08/16/18 23:10 Toxic Granulation Not Reportable 08/16/18 23:10 Toxic Vacuolation Not Reportable 08/16/18 23:10 Dohle Bodies Not Reportable 08/16/18 23:10 Pelger-Huet Anomaly Not Reportable 08/16/18 23:10 Geovany Rods Not Reportable 08/16/18 23:10 Platelet Estimate Appears normal 08/16/18 23:10 Clumped Platelets Not Reportable 08/16/18 23:10 Plt Clumps, EDTA Not Reportable 08/16/18 23:10 Large Platelets Not Reportable 08/16/18 23:10 Giant Platelets Not Reportable 08/16/18 23:10 Platelet Satelliting Not Reportable 08/16/18 23:10 Plt Morphology Comment Not Reportable 08/16/18 23:10 RBC Morphology Not Reportable 08/16/18 23:10 Dimorphic RBCs Not Reportable 08/16/18 23:10 Polychromasia Not Reportable 08/16/18 23:10 Hypochromasia Not Reportable 08/16/18 23:10 Poikilocytosis Not Reportable 08/16/18 23:10 Anisocytosis 1+ 08/16/18 23:10 Microcytosis Not Reportable 08/16/18 23:10 Macrocytosis Not Reportable 08/16/18 23:10 Spherocytes Not Reportable 08/16/18 23:10 Pappenheimer Bodies Not Reportable 08/16/18 23:10 Sickle Cells Not Reportable 08/16/18 23:10 Target Cells Not Reportable 08/16/18 23:10 Tear Drop Cells Not Reportable 08/16/18 23:10 Ovalocytes Not Reportable 08/16/18 23:10 Helmet Cells Not Reportable 08/16/18 23:10 [place] Bodies Not Reportable 08/16/18 23:10 Distant Rings Not Reportable 08/16/18 23:10 [place] Cells Not Reportable 08/16/18 23:10 Bite Cells Not Reportable 08/16/18 23:10 Crenated Cell Not Reportable 08/16/18 23:10 Elliptocytes Not Reportable 08/16/18 23:10 Acanthocytes (Spur) Not Reportable 08/16/18 23:10 Rouleaux Not Reportable 08/16/18 23:10 Hemoglobin C Crystals Not Reportable 08/16/18 23:10 Schistocytes Not Reportable 08/16/18 23:10 Malaria parasites Not Reportable 08/16/18 23:10 Jl Bodies Not Reportable 08/16/18 23:10 Hem Pathologist Commnt No 08/16/18 23:10 PT 13.7 Sec. (12.2-14.9) 08/18/18 06:59 INR 1.01 (0.87-1.13) 08/18/18 06:59 APTT 47.2 Sec. (24.2-36.6) H 08/18/18 06:59 Heparin Anti-Xa Level 0.50 U.I./ml (0.3-0.7) 08/18/18 06:59 Sodium 141 mmol/L (137-145) 08/18/18 09:26 Potassium 4.7 mmol/L (3.6-5.0) 08/18/18 09:26 Chloride 103.9 mmol/L (98-107) 08/18/18 09:26 Carbon Dioxide 25 mmol/L (22-30) 08/18/18 09:26 Anion Gap 17 mmol/L 08/18/18 09:26 BUN 10 mg/dL (9-20) 08/18/18 09:26 Creatinine 1.0 mg/dL (0.8-1.5) 08/18/18 09:26 Estimated GFR > 60 ml/min 08/18/18 09:26 BUN/Creatinine Ratio 10 % 08/18/18 09:26 Glucose 75 mg/dL (75-100) 08/18/18 09:26 POC Glucose 98 (70-105) 08/16/18 23:13 Calcium 8.6 mg/dL (8.4-10.2) 08/18/18 09:26 Magnesium 2.20 mg/dL (1.7-2.3) 08/18/18 09:26 Total Bilirubin 0.40 mg/dL (0.1-1.2) 08/18/18 09:26 AST 204 units/L (5-40) H 08/18/18 09:26 ALT 56 units/L (7-56) 08/18/18 09:26 Alkaline Phosphatase 104 units/L (35-129) 08/18/18 09:26 Total Creatine Kinase 1306 units/L (55-170) H 08/18/18 09:26 CK-MB (CK-2) 97.4 ng/mL (0.0-4.0) H 08/18/18 09:26 CK-MB (CK-2) Rel Index 7.4 (0-4) H 08/18/18 09:26 Troponin T 4.470 ng/mL (0.00-0.029) H* 08/18/18 09:26 Total Protein 6.5 g/dL (6.3-8.2) 08/18/18 09:26 Albumin 3.9 g/dL (3.9-5) 08/18/18 09:26 Albumin/Globulin Ratio 1.5 % 08/18/18 09:26 Triglycerides 57 mg/dL (2-149) 08/17/18 13:54 Cholesterol 152 mg/dL (50-199) 08/17/18 13:54 LDL Cholesterol Direct 107 mg/dL (50-130) 08/17/18 13:54 HDL Cholesterol 42 mg/dL (40-59) 08/17/18 13:54 Cholesterol/HDL Ratio 3.61 % 08/17/18 13:54 Urine Opiates Screen Presumptive negative 08/17/18 05:10 Urine Methadone Screen Presumptive negative 08/17/18 05:10 Ur Barbiturates Screen Presumptive negative 08/17/18 05:10 Ur Phencyclidine Scrn Presumptive negative 08/17/18 05:10 Ur Amphetamines Screen Presumptive negative 08/17/18 05:10 U Benzodiazepines Scrn Presumptive positive 08/17/18 05:10 Urine Cocaine Screen Presumptive negative 08/17/18 05:10 U Marijuana (THC) Screen Presumptive negative 08/17/18 05:10 Drugs of Abuse Note Disclamer 08/17/18 05:10
[2018-08-18] MEDS: HEPARIN/ 0.45% NACL-25,000 UNIT/500 ML 25,000 UNIT/500 ML BAG IV SCH (12:36)
--- NOTE | 2018-08-18 12:38 | Progress Note ---
Assessment and Plan 68 yo AAM: 1. s/p large acute anterior stemi * s/p IVUS, TVP, thromectomy, IABP, and primary pci w tanya * clinically vastly improved * but severe resultant stunned (hopefully) cardiomyopathy w/ EF ~15% * cont asa/plavix/statin/bb * ECG evolution reviewed w/ concerned RN * keep in ICU today * watch for mechanical complication of large ant IL * f/u tte Subjective Date of service: 08/18/18 Interval history: no complaints Objective Vital Signs Temp Pulse Resp BP Pulse Ox 08/18/18 06:00 64 11 L 110/67 96 08/18/18 05:00 59 L 9 L 108/71 97 08/18/18 04:30 11 L 96 08/18/18 04:00 97.1 F L 58 L 9 L 116/66 97 08/18/18 03:00 61 11 L 114/77 100 08/18/18 02:00 63 8 L 111/77 99 08/18/18 01:00 65 9 L 120/79 100 08/18/18 00:14 60 8 L 117/73 100 08/18/18 00:00 62 9 L 117/73 100 08/17/18 23:54 97.1 F L 08/17/18 23:00 58 L 9 L 116/78 100 08/17/18 22:10 99 08/17/18 22:00 59 L 9 L 116/69 99 08/17/18 21:00 63 7 L 121/81 100 08/17/18 20:00 97.1 F L 59 L 8 L 123/82 100 08/17/18 19:00 64 8 L 120/78 100 08/17/18 18:20 73 10 L 127/84 100 08/17/18 18:10 75 10 L 127/84 100 08/17/18 18:00 82 11 L 127/84 99 08/17/18 17:50 102 H 13 126/85 97 08/17/18 17:40 62 6 L 126/85 100 08/17/18 17:30 66 7 L 126/85 100 08/17/18 17:20 65 7 L 126/85 99 08/17/18 17:10 77 11 L 130/85 100 08/17/18 17:00 66 10 L 130/85 100 08/17/18 16:50 63 11 L 126/85 100 08/17/18 16:40 68 8 L 126/85 99 08/17/18 16:30 63 7 L 126/85 99 08/17/18 16:20 72 7 L 126/85 100 08/17/18 16:10 76 9 L 126/85 99 08/17/18 16:00 97.4 F L 62 8 L 126/85 98 08/17/18 15:50 70 9 L 137/81 99 08/17/18 15:40 82 12 137/81 98 08/17/18 15:30 66 8 L 137/81 100 08/17/18 15:20 63 7 L 137/81 99 08/17/18 15:10 59 L 9 L 132/77 08/17/18 15:00 67 14 132/81 99 08/17/18 14:50 65 9 L 132/87 08/17/18 14:40 71 15 134/91 08/17/18 14:30 73 13 134/91 08/17/18 14:20 66 12 124/84 08/17/18 14:10 65 12 118/77 08/17/18 14:00 97.3 F L 69 11 L 127/75 100 08/17/18 13:50 63 9 L 125/84 08/17/18 13:40 98.1 F 62 8 L 122/73 100 08/17/18 13:35 97.6 F 59 L 9 L 118/77 98 08/17/18 13:30 59 L 8 L 120/81 100 08/17/18 13:25 98.6 F 61 10 L 116/80 99 08/17/18 13:20 63 9 L 124/76 100 08/17/18 13:10 57 L 7 L 114/69 100 08/17/18 13:05 58 L 12 114/69 100 08/17/18 13:00 59 L 8 L 114/69 100 08/17/18 12:50 58 L 8 L 126/76 100 08/17/18 12:40 61 7 L 126/76 100 - Labs and Meds Cardiac Enzymes 08/18/18 08/18/18 08/18/18 Range/Units 03:04 09:26 09:26 AST 204 H (5-40) units/L CK-MB (CK-2) 125.9 H 97.4 H (0.0-4.0) ng/mL Coagulation 08/18/18 Range/Units 06:59 PT 13.7 (12.2-14.9) Sec. INR 1.01 (0.87-1.13) APTT 47.2 H (24.2-36.6) Sec. Lipids 08/17/18 Range/Units 13:54 Triglycerides 57 (2-149) mg/dL Cholesterol 152 (50-199) mg/dL HDL Cholesterol 42 (40-59) mg/dL Cholesterol/HDL Ratio 3.61 % CBC 08/18/18 08/18/18 Range/Units 03:04 09:26 WBC 7.4 7.3 (4.5-11.0) K/mm3 RBC 5.05 H 5.44 H (3.65-5.03) M/mm3 Hgb 13.9 14.8 (11.8-15.2) gm/dl Hct 42.2 45.0 (35.5-45.6) % Plt Count 116 L 131 L (140-440) K/mm3 Lymph # 2.1 2.1 (1.2-5.4) K/mm3 [place] # 0.6 0.6 (0.0-0.8) K/mm3 Eos # 0.1 0.1 (0.0-0.4) K/mm3 Baso # 0.1 0.0 (0.0-0.1) K/mm3 Comprehensive Metabolic Panel 08/18/18 08/18/18 Range/Units 03:04 09:26 Sodium 136 L D 141 (137-145) mmol/L Potassium 4.3 4.7 (3.6-5.0) mmol/L Chloride 103.5 103.9 (98-107) mmol/L Carbon Dioxide 25 25 (22-30) mmol/L BUN 9 10 (9-20) mg/dL Creatinine 0.9 1.0 (0.8-1.5) mg/dL Glucose 101 H 75 (75-100) mg/dL Calcium 8.5 8.6 (8.4-10.2) mg/dL AST 204 H (5-40) units/L ALT 56 (7-56) units/L Alkaline Phosphatase 104 (35-129) units/L Total Protein 6.5 (6.3-8.2) g/dL Albumin 3.9 (3.9-5) g/dL
--- NOTE | 2018-08-18 18:27 | Progress Note ---
Assessment and Plan Imp: 1. STEMI 2. CAD 3. Ischemic cardiomyopathy 4. Chronic nicotine dependence, cigarettes 5. Hypernatremia, resolved Rec: 1. Heparin, Plavix, etc. as per cardiology 2. Stop smoking, counseled 3. Pulm-gamboa stable Plan of care reviewed w/ patient, he understands/agrees Subjective Date of service: 08/18/18 Principal diagnosis: STEMI Interval history: No events. On RA. No chest pain or SOB. Active Medications Aspirin (Ecotrin) 325 mg PO QDAY [facility] Last Admin: 08/18/18 12:38 Dose: Not Given Documented by: Atorvastatin Calcium (Lipitor) 40 mg PO QHS [facility] Last Admin: 08/17/18 22:13 Dose: 40 mg Documented by: Clopidogrel Bisulfate (Plavix) 75 mg PO QDAY [facility] Last Admin: 08/18/18 11:00 Dose: 75 mg Documented by: Fluticasone Propionate (Flonase) 200 mcg NS QDAY [facility] Last Admin: 08/18/18 10:00 Dose: 200 mcg Documented by: Heparin Sodium/Sodium Chloride (Heparin/ 0.45% Nacl-25,000 Unit/500 Ml) 25,000 unit in 500 mls @ 18 mls/hr IV TITRATE [facility]; Protocol Last Admin: 08/18/18 12:36 Dose: 17 units/kg/hr, 21.283 mls/hr Documented by: Morphine Sulfate (Morphine) 1 mg IV Q4H PRN PRN Reason: Pain, Moderate Last Admin: 08/18/18 08:27 Dose: 1 mg Documented by: Ondansetron HCl (Zofran) 4 mg IV Q4H PRN PRN Reason: Nausea And Vomiting Objective Vital Signs - 12hr 08/18/18 08/18/18 08/18/18 07:00 08:00 09:00 Temperature 98.7 F Pulse Rate 67 70 75 Respiratory 8 L 12 10 L Rate Blood Pressure 115/71 118/75 113/71 O2 Sat by Pulse 96 100 95 Oximetry 08/18/18 08/18/18 08/18/18 10:00 11:00 12:00 Temperature 98.3 F Pulse Rate 75 76 65 Respiratory 9 L 12 9 L Rate Blood Pressure 113/73 116/67 94/62 O2 Sat by Pulse 98 96 100 Oximetry 08/18/18 08/18/18 08/18/18 13:00 14:00 15:00 Temperature Pulse Rate 73 62 78 Respiratory 11 L 10 L 11 L Rate Blood Pressure 102/63 88/43 98/57 O2 Sat by Pulse 96 96 98 Oximetry 08/18/18 08/18/18 16:00 17:00 Temperature 98.0 F Pulse Rate 72 64 Respiratory 13 8 L Rate Blood Pressure 84/34 83/44 O2 Sat by Pulse 97 97 Oximetry Constitutional: no acute distress, alert Eyes: non-icteric ENT: oropharynx moist Neck: supple Effort: normal Ascultation: Bilateral: clear Cardiovascular: regular rate and rhythm (no mrg) Gastrointestinal: normoactive bowel sounds, soft, non-tender, non-distended Integumentary: normal Extremities: no cyanosis, no edema, pink and warm Neurologic: normal mental status, non-focal exam, pupils equal and round, CN II- XII normal Psychiatric: mood appropriate, affect normal CBC and BMP: 08/18/18 09:26 08/18/18 09:26 ABG, PT/INR, D-dimer: PT/INR, D-dimer PT 13.7 Sec. (12.2-14.9) 08/18/18 06:59 INR 1.01 (0.87-1.13) 08/18/18 06:59 Abnormal lab findings: Abnormal Labs 08/16/18 08/16/18 08/17/18 23:10 23:10 04:41 RBC 5.32 H MCV MCH 27 L Plt Count [place] % (Auto) Lymphocytes % (Manual) 39.0 H APTT Heparin Anti-Xa Level 1.23 H Sodium 148 H Chloride 113.8 H Carbon Dioxide 21 L Glucose AST Total Creatine Kinase CK-MB (CK-2) CK-MB (CK-2) Rel Index Troponin T 08/18/18 08/18/18 08/18/18 03:04 03:04 06:59 RBC 5.05 H MCV MCH Plt Count 116 L [place] % (Auto) 8.2 H Lymphocytes % (Manual) APTT 47.2 H Heparin Anti-Xa Level Sodium 136 L D Chloride Carbon Dioxide Glucose 101 H AST Total Creatine Kinase 1492 H CK-MB (CK-2) 125.9 H CK-MB (CK-2) Rel Index 8.4 H Troponin T 4.720 H* D 08/18/18 08/18/1808/18/19 09:26 09:26 09:26 RBC 5.44 H MCV 83 L MCH 27 L Plt Count 131 L [place] % (Auto) 7.9 H Lymphocytes % (Manual) APTT Heparin Anti-Xa Level Sodium Chloride Carbon Dioxide Glucose AST 204 H Total Creatine Kinase 1306 H CK-MB (CK-2) 97.4 H CK-MB (CK-2) Rel Index 7.4 H Troponin T 4.470 H* Chest x-ray: report reviewed ("negative"; cannot pull up images)
--- NOTE | 2018-08-19 10:05 | Progress Note ---
Assessment and Plan Assessment and plan: Acute coronary syndrome. The patient was taken emergently to the label press operator and found to have acute atherothrombotic occlusion of the proximal LAD with anterior ST elevation OR. Patient had successful PCI and drug-eluting stent of the LAD. No other significant disease noted in the coronary tree. Patient was also noted to have severe anterior, anterior apical and inferior apical dyskinesis/akinesis with an estimated EF of 15-20%. Continue heparin drip, aspirin, Plavix and statin therapy. Cardiology following. STEMI. As above Coronary artery disease. As above. Ischemic cardiomyopathy. As above. Hypertension. Continue antihypertensive medications. Hyperlipidemia. Started Lipitor. Mild rhabdomyolysis. Continue IV fluids. Mild Hypernatremia. Follow-up BMP. Nicotine dependence. Smoking cessation counseling. History Interval history: No new issues overnight. Patient denies chest pain. Hospitalist Physical - Constitutional Vitals: Temp Pulse Resp BP Pulse Ox 98.5 F 66 13 102/51 98 08/19/18 08:00 08/19/18 08:00 08/19/18 08:00 08/19/18 08:00 08/19/18 09:06 General appearance: Present: no acute distress, well-nourished - EENT Eyes: Present: PERRL, EOM intact ENT: hearing intact, clear oral mucosa, dentition normal - Neck Neck: Present: supple, normal ROM - Respiratory Respiratory effort: normal Respiratory: bilateral: CTA - Cardiovascular Rhythm: regular Heart Sounds: Present: S1 & S2. Absent: gallop, rub - Extremities Extremities: no ischemia, No edema, Full ROM - Abdominal General gastrointestinal: soft, non-tender, non-distended, normal bowel sounds - Integumentary Integumentary: Present: clear, warm, dry - Neurologic Neurologic: CNII-XII intact, moves all extremities Results - Labs CBC & Chem 7: 08/18/18 09:26 08/18/18 09:26 Labs: Laboratory Last Values WBC 7.3 K/mm3 (4.5-11.0) 08/18/18 09:26 RBC 5.44 M/mm3 (3.65-5.03) H 08/18/18 09:26 Hgb 14.8 gm/dl (11.8-15.2) 08/18/18 09:26 Hct 45.0 % (35.5-45.6) 08/18/18 09:26 MCV 83 fl (84-94) L 08/18/18 09: MCH 27 pg (28-32) L 08/18/18 09:26 MCHC 33 % (32-34) 08/18/18 09:26 RDW 14.7 % (13.2-15.2) 08/18/18 09:26 Plt Count 131 K/mm3 (140-440) L 08/18/18 09:26 Lymph % (Auto) 28.3 % (13.4-35.0) 08/18/18 09:26 [place] % (Auto) 7.9 % (0.0-7.3) H 08/18/18 09:26 Eos % (Auto) 1.3 % (0.0-4.3) 08/18/18 09:26 Baso % (Auto) 0.5 % (0.0-1.8) 08/18/18 09: Lymph # 2.1 K/mm3 (1.2-5.4) 08/18/18 09:26 [place] # 0.6 K/mm3 (0.0-0.8) 08/18/18 09:26 Eos # 0.1 K/mm3 (0.0-0.4) 08/18/18 09:26 Baso # 0.0 K/mm3 (0.0-0.1) 08/18/18 09:26 Add Manual Diff Complete 08/16/18 23:10 Total Counted 100 08/16/18 23:10 Seg Neutrophils % 62.0 % (40.0-70.0) 08/18/18 09:26 Seg Neuts % (Manual) 51.0 % (40.0-70.0) 08/16/18 23:10 Band Neutrophils % 3.0 % 08/16/18 23:10 Lymphocytes % (Manual) 39.0 % (13.4-35.0) H 08/16/18 23:10 Reactive Lymphs % (Man) 0 % 08/16/18 23:10 Monocytes % (Manual) 7.0 % (0.0-7.3) 08/16/18 23:10 Eosinophils % (Manual) 0 % (0.0-4.3) 08/16/18 23:10 Basophils % (Manual) 0 % (0.0-1.8) 08/16/18 23:10 Metamyelocytes % 0 % 08/16/18 23:10 Myelocytes % 0 % 08/16/18 23:10 Promyelocytes % 0 % 08/16/18 23:10 Blast Cells % 0 % 08/16/18 23:10 Nucleated RBC % Not Reportable 08/16/18 23:10 Seg Neutrophils # 4.5 K/mm3 (1.8-7.7) 08/18/18 09:26 Seg Neutrophils # Man 4.2 K/mm3 (1.8-7.7) 08/16/18 23:10 Band Neutrophils # 0.2 K/mm3 08/16/18 23:10 Lymphocytes # (Manual) 3.2 K/mm3 (1.2-5.4) 08/16/18 23:10 Abs React Lymphs (Man) 0.0 K/mm3 08/16/18 23:10 Monocytes # (Manual) 0.6 K/mm3 (0.0-0.8) 08/16/18 23:10 Eosinophils # (Manual) 0.0 K/mm3 (0.0-0.4) 08/16/18 23:10 Basophils # (Manual) 0.0 K/mm3 (0.0-0.1) 08/16/18 23:10 Metamyelocytes # 0.0 K/mm3 08/16/18 23:10 Myelocytes # 0.0 K/mm3 08/16/18 23:10 Promyelocytes # 0.0 K/mm3 08/16/18 23:10 Blast Cells # 0.0 K/mm3 08/16/18 23:10 WBC Morphology Not Reportable 08/16/18 23:10 Hypersegmented Neuts Not Reportable 08/16/18 23:10 Hyposegmented Neuts Not Reportable 08/16/18 23:10 Hypogranular Neuts Not Reportable 08/16/18 23:10 Smudge Cells Not Reportable 08/16/18 23:10 Toxic Granulation Not Reportable 08/16/18 23:10 Toxic Vacuolation Not Reportable 08/16/18 23:10 Dohle Bodies Not Reportable 08/16/18 23:10 Pelger-Huet Anomaly Not Reportable 08/16/18 23:10 Geovany Rods Not Reportable 08/16/18 23:10 Platelet Estimate Appears normal 08/16/18 23:10 Clumped Platelets Not Reportable 08/16/18 23:10 Plt Clumps, EDTA Not Reportable 08/16/18 23:10 Large Platelets Not Reportable 08/16/18 23:10 Giant Platelets Not Reportable 08/16/18 23:10 Platelet Satelliting Not Reportable 08/16/18 23:10 Plt Morphology Comment Not Reportable 08/16/18 23:10 RBC Morphology Not Reportable 08/16/18 23:10 Dimorphic RBCs Not Reportable 08/16/18 23:10 Polychromasia Not Reportable 08/16/18 23:10 Hypochromasia Not Reportable 08/16/18 23:10 Poikilocytosis Not Reportable 08/16/18 23:10 Anisocytosis 1+ 08/16/18 23:10 Microcytosis Not Reportable 08/16/18 23:10 Macrocytosis Not Reportable 08/16/18 23:10 Spherocytes Not Reportable 08/16/18 23:10 Pappenheimer Bodies Not Reportable 08/16/18 23:10 Sickle Cells Not Reportable 08/16/18 23:10 Target Cells Not Reportable 08/16/18 23:10 Tear Drop Cells Not Reportable 08/16/18 23:10 Ovalocytes Not Reportable 08/16/18 23:10 Helmet Cells Not Reportable 08/16/18 23:10 [place] Bodies Not Reportable 08/16/18 23:10 [place] Rings Not Reportable 08/16/18 23:10 [place] Cells Not Reportable 08/16/18 23:10 Bite Cells Not Reportable 08/16/18 23:10 Crenated Cell Not Reportable 08/16/18 23:10 Elliptocytes Not Reportable 08/16/18 23:10 Acanthocytes (Spur) Not Reportable 08/16/18 23:10 Rouleaux Not Reportable 08/16/18 23:10 Hemoglobin C Crystals Not Reportable 08/16/18 23:10 Schistocytes Not Reportable 08/16/18 23:10 Malaria parasites Not Reportable 08/16/18 23:10 Jl Bodies Not Reportable 08/16/18 23:10 Hem Pathologist Commnt No 08/16/18 23:10 PT 13.7 Sec. (12.2-14.9) 08/18/18 06:59 INR 1.01 (0.87-1.13) 08/18/18 06:59 APTT 47.2 Sec. (24.2-36.6) H 08/18/18 06:59 Activated Clotting Time 235 (74-137) H 08/16/18 23:54 Heparin Anti-Xa Level 0.50 U.I./ml (0.3-0.7) 08/18/18 06:59 Sodium 141 mmol/L (137-145) 08/18/18 09:26 Potassium 4.7 mmol/L (3.6-5.0) 08/18/18 09:26 Chloride 103.9 mmol/L (98-107) 08/18/18 09:26 Carbon Dioxide 25 mmol/L (22-30) 08/18/18 09:26 Anion Gap 17 mmol/L 08/18/18 09:26 BUN 10 mg/dL (9-20) 08/18/18 09:26 Creatinine 1.0 mg/dL (0.8-1.5) 08/18/18 09:26 Estimated GFR > 60 ml/min 08/18/18 09:26 BUN/Creatinine Ratio 10 % 08/18/18 09:26 Glucose 75 mg/dL (75-100) 08/18/18 09:26 POC Glucose 98 (70-105) 08/16/18 23:13 Calcium 8.6 mg/dL (8.4-10.2) 08/18/18 09:26 Magnesium 2.20 mg/dL (1.7-2.3) 08/18/18 09:26 Total Bilirubin 0.40 mg/dL (0.1-1.2) 08/18/18 09:26 AST 204 units/L (5-40) H 08/18/18 09:26 ALT 56 units/L (7-56) 08/18/18 09:26 Alkaline Phosphatase 104 units/L (35-129) 08/18/18 09:26 Total Creatine Kinase 1306 units/L (55-170) H 08/18/18 09:26 CK-MB (CK-2) 97.4 ng/mL (0.0-4.0) H 08/18/18 09:26 CK-MB (CK-2) Rel Index 7.4 (0-4) H 08/18/18 09:26 Troponin T 4.470 ng/mL (0.00-0.029) H* 08/18/18 09:26 Total Protein 6.5 g/dL (6.3-8.2) 08/18/18 09:26 Albumin 3.9 g/dL (3.9-5) 08/18/18 09:26 Albumin/Globulin Ratio 1.5 % 08/18/18 09:26 Triglycerides 57 mg/dL (2-149) 08/17/18 13:54 Cholesterol 152 mg/dL (50-199) 08/17/18 13:54 LDL Cholesterol Direct 107 mg/dL (50-130) 08/17/18 13:54 HDL Cholesterol 42 mg/dL (40-59) 08/17/18 13:54 Cholesterol/HDL Ratio 3.61 % 08/17/18 13:54 Urine Opiates Screen Presumptive negative 08/17/18 05:10 Urine Methadone Screen Presumptive negative 08/17/18 05:10 Ur Barbiturates Screen Presumptive negative 08/17/18 05:10 Ur Phencyclidine Scrn Presumptive negative 08/17/18 05:10 Ur Amphetamines Screen Presumptive negative 08/17/18 05:10 U Benzodiazepines Scrn Presumptive positive 08/17/18 05:10 Urine Cocaine Screen Presumptive negative 08/17/18 05:10 U Marijuana (THC) Screen Presumptive negative 08/17/18 05:10 Drugs of Abuse Note Disclamer 08/17/18 05:10
[2018-08-19] MEDS: ECOTRIN PO SCH (11:10)
[2018-08-19] MEDS: PLAVIX PO SCH (11:10)
[2018-08-19] MEDS: FLONASE NS SCH (11:11)
--- NOTE | 2018-08-19 11:23 | Progress Note ---
Assessment and Plan s/p large acute anterior stemi, s/p IVUS, TVP, thromectomy, IABP, and primary pci w tanya. Echo reviewed - mild to mod LVH, EF 20-25%, RV systolic function mod reduced, LV chamber size mildly dilated. Currently stable cardiac status, cont present cardiac management including cont asa/plavix/statin/bb. Consider addition of ACEI/ARB if BPs permit. Tx out of CCU to telemetry. Increase activity/ambulation. Possible d/c home in AM. The patient has been seen in conjunction with Dr. March who agrees with the assessment and plan of care. - Patient Problems (1) STEMI (ST elevation myocardial infarction) Current Visit: Yes Status: Acute Qualifiers: Involved coronary artery: unspecified coronary artery Qualified Code(s): I21.3 - ST elevation (STEMI) myocardial infarction of unspecified site (2) CAD (coronary artery disease) Current Visit: Yes Status: Chronic (3) Stented coronary artery Current Visit: Yes Status: Chronic (4) Ischemic cardiomyopathy Current Visit: Yes Status: Chronic (5) Tobacco use Current Visit: Yes Status: Chronic Subjective Date of service: 08/19/18 Principal diagnosis: STEMI Interval history: pt resting in bed, no current cardiac complaints. Objective Last Vital Signs Temp 98.5 F 08/19/18 08:00 Pulse 92 H 08/19/18 10:00 Resp 12 08/19/18 10:00 BP 102/51 08/19/18 10:00 Pulse Ox 99 08/19/18 10:00 - Physical Examination General: No Apparent Distress HEENT: Positive: PERRL, Normocephaly, Mucus Membranes Moist Neck: Positive: neck supple, trachea midline Cardiac: Positive: Reg Rate and Rhythm, S1/S2 Lungs: Positive: clear to auscultation Neuro: Positive: Grossly Intact Abdomen: Positive: Soft. Negative: Tender Skin: Positive: Clear. Negative: Rash, Wound Musculoskeletal: No Pain Extremities: Absent: edema - Imaging and Cardiology EKG: report reviewed, image reviewed Echo: report reviewed (mild to mod LVH, EF 20-25%, RV systolic function mod reduced, LV chamber size mildly dilated) Cardiac cath: report reviewed (PCI of prox LAD with TANYA, EF 15-20%) - Telemetry EKG Rhythm: Sinus Rhythm
--- NOTE | 2018-08-19 14:27 | Progress Note ---
Assessment and Plan Pulm status is stable. Will sign off. Call if questions. Subjective Date of service: 08/19/18 Principal diagnosis: STEMI Interval history: No acute events. Cards to move out of ICU today. Objective Vital Signs - 12hr 08/19/18 08/19/18 08/19/18 03:00 03:56 04:00 Temperature 98.3 F Pulse Rate 76 74 Respiratory 10 L 9 L Rate Blood Pressure 102/51 102/51 O2 Sat by Pulse 98 97 Oximetry 08/19/18 08/19/18 08/19/18 05:00 06:00 07:00 Temperature Pulse Rate 62 69 72 Respiratory 11 L 8 L 8 L Rate Blood Pressure 102/51 102/51 102/51 O2 Sat by Pulse 96 96 99 Oximetry 08/19/18 08/19/18 08/19/18 08:00 09:00 09:06 Temperature 98.5 F Pulse Rate 66 77 Respiratory 13 15 Rate Blood Pressure 102/51 102/51 O2 Sat by Pulse 97 96 98 Oximetry 08/19/18 08/19/18 10:00 14:25 Temperature Pulse Rate 92 H Respiratory 12 Rate Blood Pressure 102/51 O2 Sat by Pulse 99 96 Oximetry Constitutional: no acute distress, alert Eyes: non-icteric ENT: oropharynx moist Neck: supple Effort: normal Ascultation: Bilateral: clear Cardiovascular: regular rate and rhythm (no mrg) Gastrointestinal: normoactive bowel sounds, soft, non-tender, non-distended Integumentary: normal Extremities: no cyanosis, no edema, pink and warm Neurologic: normal mental status, non-focal exam, pupils equal and round, CN II- XII normal Psychiatric: mood appropriate, affect normal CBC and BMP: 08/18/18 09:26 08/18/18 09:26 ABG, PT/INR, D-dimer: PT/INR, D-dimer PT 13.7 Sec. (12.2-14.9) 08/18/18 06:59 INR 1.01 (0.87-1.13) 08/18/18 06:59 Abnormal lab findings: Abnormal Labs 08/16/18 08/16/18 08/16/18 23:10 23:10 23:41 RBC 5.32 H MCV MCH 27 L Plt Count [place] % (Auto) Lymphocytes % (Manual) 39.0 H APTT Activated Clotting Time 175 H Heparin Anti-Xa Level Sodium 148 H Chloride 113.8 H Carbon Dioxide 21 L Glucose AST Total Creatine Kinase CK-MB (CK-2) CK-MB (CK-2) Rel Index Troponin T 08/16/18 08/17/18 08/18/18 23:54 04:41 03:04 RBC 5.05 H MCV MCH Plt Count 116 L [place] % (Auto) 8.2 H Lymphocytes % (Manual) APTT Activated Clotting Time 235 H Heparin Anti-Xa Level 1.23 H Sodium Chloride Carbon Dioxide Glucose AST Total Creatine Kinase CK-MB (CK-2) CK-MB (CK-2) Rel Index Troponin T 08/18/18 08/18/18 08/18/18 03:04 06:59 09:26 RBC MCV MCH Plt Count [place] % (Auto) Lymphocytes % (Manual) APTT 47.2 H Activated Clotting Time Heparin Anti-Xa Level Sodium 136 L D Chloride Carbon Dioxide Glucose 101 H AST Total Creatine Kinase 1492 H 1306 H CK-MB (CK-2) 125.9 H 97.4 H CK-MB (CK-2) Rel Index 8.4 H 7.4 H Troponin T 4.720 H* D 08/18/18 08/18/18 09:26 09:26 RBC 5.44 H MCV 83 L MCH 27 L Plt Count 131 L [place] % (Auto) 7.9 H Lymphocytes % (Manual) APTT Activated Clotting Time Heparin Anti-Xa Level Sodium Chloride Carbon Dioxide Glucose AST 204 H Total Creatine Kinase CK-MB (CK-2) CK-MB (CK-2) Rel Index Troponin T 4.470 H*
[2018-08-19] MEDS: LOPRESSOR PO SCH (22:32)
[2018-08-20 07:06] LABS: Basophils % (Auto) 0.8 % (0.0-1.8); Eosinophils # (Auto) 0.1 K/mm3 (0.0-0.4); Eosinophils % (Auto) 1.4 % (0.0-4.3); Hematocrit 40.8 % (35.5-45.6); Hemoglobin 13.6 gm/dl (11.8-15.2); Lymphocytes % (Auto) 33.4 % (13.4-35.0); Mean Corpuscular HGB Conc 33 % (32-34); Mean Corpuscular Volume 82 fl (84-94); Monocytes # (Auto) 0.6 K/mm3 (0.0-0.8); Monocytes % (Auto) 9.7 % (0.0-7.3); Platelet Count 133 K/mm3 (140-440); Red Blood Count 4.98 M/mm3 (3.65-5.03); Red Cell Distribution Width 14.3 % (13.2-15.2)
[2018-08-20 07:12] LABS: BUN/Creatinine Ratio 13; Blood Urea Nitrogen 14 mg/dL (9-20); Calcium 8.8 mg/dL (8.4-10.2); Hemolysis Index 1
[2018-08-20] MEDS: FLONASE NS SCH (09:47)
[2018-08-20] MEDS: PLAVIX PO SCH (09:48)
[2018-08-20] MEDS: LOPRESSOR PO SCH (09:48)
[2018-08-20] MEDS: ECOTRIN PO SCH (09:48)
[2018-08-20 09:49] VITALS: BP 132/76
--- NOTE | 2018-08-20 11:00 | Progress Note ---
Assessment and Plan Currently stable cardiac status, cont present cardiac management including cont asa/plavix/statin/bb. ACEI/ARB and/or aldactone not initiated yet due to borderline BPs. Will readdress as OP. Pt may discharge home from cardiology standpoint. Follow up in our [place] office with Dr. Wendy Arevalo on 09/02/2018 @ 2:45PM. The patient has been seen in conjunction with Dr. March who agrees with the assessment and plan of care. - Patient Problems (1) STEMI (ST elevation myocardial infarction) Current Visit: Yes Status: Acute Qualifiers: Involved coronary artery: unspecified coronary artery Qualified Code(s): I21.3 - ST elevation (STEMI) myocardial infarction of unspecified site (2) CAD (coronary artery disease) Current Visit: Yes Status: Chronic (3) Stented coronary artery Current Visit: Yes Status: Chronic (4) Ischemic cardiomyopathy Current Visit: Yes Status: Chronic (5) Tobacco use Current Visit: Yes Status: Chronic Subjective Date of service: 08/20/18 Principal diagnosis: STEMI Interval history: pt resting in bed, no current cardiac complaints. Objective Last Vital Signs Temp 98.0 F 08/20/18 09:01 Pulse 76 08/20/18 09:48 Resp 18 08/20/18 09:00 BP 132/76 08/20/18 09:48 Pulse Ox 98 08/20/18 09:00 - Physical Examination General: No Apparent Distress HEENT: Positive: PERRL, Normocephaly, Mucus Membranes Moist Neck: Positive: neck supple, trachea midline Cardiac: Positive: Reg Rate and Rhythm, S1/S2 Lungs: Positive: clear to auscultation Neuro: Positive: Grossly Intact Abdomen: Positive: Soft. Negative: Tender Skin: Positive: Clear. Negative: Rash, Wound Musculoskeletal: No Pain Extremities: Absent: edema - Labs and Meds CBC 08/20/18 Range/Units 06:30 WBC 5.9 (4.5-11.0) K/mm3 RBC 4.98 (3.65-5.03) M/mm3 Hgb 13.6 (11.8-15.2) gm/dl Hct 40.8 (35.5-45.6) % Plt Count 133 L (140-440) K/mm3 Lymph # 2.0 (1.2-5.4) K/mm3 [place] # 0.6 (0.0-0.8) K/mm3 Eos # 0.1 (0.0-0.4) K/mm3 Baso # 0.0 (0.0-0.1) K/mm3 Comprehensive Metabolic Panel 08/20/18 Range/Units 06:30 Sodium 141 (137-145) mmol/L Potassium 4.3 (3.6-5.0) mmol/L Chloride 105.7 (98-107) mmol/L Carbon Dioxide 26 (22-30) mmol/L BUN 14 (9-20) mg/dL Creatinine 1.1 (0.8-1.5) mg/dL Glucose 93 (75-100) mg/dL Calcium 8.8 (8.4-10.2) mg/dL - Imaging and Cardiology EKG: report reviewed, image reviewed Echo: report reviewed (mild to mod LVH, EF 20-25%, RV systolic function mod reduced, LV chamber size mildly dilated) Cardiac cath: report reviewed (PCI of prox LAD with JAIR, EF 15-20%) - Telemetry EKG Rhythm: Sinus Rhythm
--- NOTE | 2018-08-20 11:12 | Discharge Summary ---
Providers - Providers Date of Admission: 08/17/18 00:27 Date of discharge: 08/20/18 Attending physician: LINDA STEEN 08/17/18 Consult to Cardiac Rehabilitation [CONS] Routine Reason For Exam: post pci 08/17/18 07:57 Consult to Physician [CONS] Routine Comment: Consulting Provider: DICK JORGENSEN Physician Instructions: Reason For Exam: stemi 08/17/18 07:58 Consult to Physician [CONS] Routine Comment: Consulting Provider: SHAYY FRANKS Physician Instructions: Reason For Exam: stemi Primary care physician: SET ILLUSTRATOR Hospitalization Reason for admission: STEMI Condition: Critical Pertinent studies: LHC with PCI and echo - see reports Procedures: LHC with PCI and echo - see reports Hospital course: The pt is a 68 YO male who presented with complaints of chest pain and was found to have anterior STEMI. Code STEMI was activated and he was taken to the research laboratory specialist emergently. He underwent LHC with PCI of prox LAD - see dictated cath report. He required IABP following PCI which was successfully weaned and discontinued the following day. Transthoracic echo showed mild to mod LVH, EF 20-25%, RV systolic function mod reduced, LV chamber size mildly dilated. He is medically stable for discharge home today. He is to follow up in our [place] office with Dr. Wendy Steen on 09/02/2018 @ 2:45PM. Disposition: DC-01 TO HOME OR SELFCARE - Discharge Diagnoses (1) STEMI (ST elevation myocardial infarction) Status: Acute Qualifiers: Involved coronary artery: unspecified coronary artery Qualified Code(s): I21.3 - ST elevation (STEMI) myocardial infarction of unspecified site (2) CAD (coronary artery disease) Status: Chronic (3) Stented coronary artery Status: Chronic (4) Ischemic cardiomyopathy Status: Chronic (5) Tobacco use Status: Chronic Core Measure Documentation - Palliative Care Palliative Care/ Comfort Measures: Not Applicable - Core Measures Any of the following diagnoses?: acute ND - Acute ND Discharge Requirements Aspirin at discharge: Yes GHAZAL/ARB for LVSD if EF <40%: No Reason for no GHAZAL/ARB: Hypotension Beta anna at discharge: Yes Statin for LDL = or >100 mg/dl on DC: Yes Exam - Constitutional Vitals: Temp Pulse Resp BP Pulse Ox 98.0 F 76 18 132/76 98 08/20/18 09:01 08/20/18 09:48 08/20/18 09:00 08/20/18 09:48 08/20/18 09:00 General appearance: Present: no acute distress - EENT Eyes: Present: PERRL, EOM intact ENT: hearing intact, clear oral mucosa, dentition normal - Neck Neck: Present: supple, normal ROM - Respiratory Respiratory effort: normal Respiratory: bilateral: CTA - Cardiovascular Rhythm: regular Heart Sounds: Present: S1 & S2 - Extremities Extremities: no ischemia, pulses intact, pulses symmetrical Peripheral Pulses: within normal limits - Abdominal General gastrointestinal: Present: soft, non-tender - Integumentary Integumentary: Present: clear, warm, dry - Musculoskeletal Musculoskeletal: strength equal bilaterally - Psychiatric Psychiatric: appropriate mood/affect - Neurologic Neurologic: CNII-XII intact Plan Activity: advance as tolerated Diet: low fat, low cholesterol, low salt Wound: open to air, keep clean and dry, per your surgeon's advice Follow up with: PRIMARY CARE, [Primary Care Provider] - 3-5 Days LINDA STEEN MD [Staff Physician] - 7 Days (Follow up in our [place] office with Dr. Wendy Steen on 09/02/2018 @ 2:45PM. ) Prescriptions: AtorvaSTATin [Lipitor] 40 mg PO QHS #30 tablet Aspirin EC [Aspirin Enteric Coated TAB] 325 mg PO QDAY #30 tablet Clopidogrel [Plavix] 75 mg PO QDAY #30 tablet Metoprolol [Lopressor TAB] 12.5 mg PO BID #60 tablet
--- NOTE | 2018-08-20 12:34 | Progress Note ---
Assessment and Plan Assessment and plan: Acute coronary syndrome. The patient was taken emergently to the label fuser tender and found to have acute atherothrombotic occlusion of the proximal LAD with anterior ST elevation MN. Patient had successful PCI and drug-eluting stent of the LAD. No other significant disease noted in the coronary tree. Patient was also noted to have severe anterior, anterior apical and inferior apical dyskinesis/akinesis with an estimated EF of 15-20%. Continue heparin drip, aspirin, Plavix and statin therapy. Cardiology following. STEMI. As above Coronary artery disease. Ischemic cardiomyopathy. Hypertension. Continue antihypertensive medications. Hyperlipidemia. Started Lipitor. Mild rhabdomyolysis. Continue IV fluids. Mild Hypernatremia. Follow-up BMP. Nicotine dependence. Smoking cessation counseling. Stable. Discharge home today History Interval history: presented with chest pain, now resolved Hospitalist Physical - Constitutional Vitals: Temp Pulse Resp BP Pulse Ox 98.0 F 76 18 132/76 98 08/20/18 09:01 08/20/18 09:48 08/20/18 09:00 08/20/18 09:48 08/20/18 09:00 General appearance: Present: no acute distress - EENT Eyes: Present: PERRL ENT: hearing intact - Neck Neck: Present: supple - Respiratory Respiratory: bilateral: CTA - Extremities Extremities: No edema - Abdominal General gastrointestinal: soft, non-tender, non-distended, normal bowel sounds - Psychiatric Psychiatric: appropriate mood/affect - Neurologic Neurologic: CNII-XII intact, moves all extremities Results - Labs CBC & Chem 7: 08/20/18 06:30 08/20/18 06:30 Labs: Laboratory Last Values WBC 5.9 K/mm3 (4.5-11.0) 08/20/18 06:30 RBC 4.98 M/mm3 (3.65-5.03) 08/20/18 06:30 Hgb 13.6 gm/dl (11.8-15.2) 08/20/18 06:30 Hct 40.8 % (35.5-45.6) 08/20/18 06:30 MCV 82 fl (84-94) L 08/20/18 06:30 MCH 27 pg (28-32) L 08/20/18 06:30 MCHC 33 % (32-34) 08/20/18 06:30 RDW 14.3 % (13.2-15.2) 08/20/18 06:30 Plt Count 133 K/mm3 (140-440) L 08/20/18 06:30 Lymph % (Auto) 33.4 % (13.4-35.0) 08/20/18 06:30 [place] % (Auto) 9.7 % (0.0-7.3) H 08/20/18 06:30 Eos % (Auto) 1.4 % (0.0-4.3) 08/20/18 06:30 Baso % (Auto) 0.8 % (0.0-1.8) 08/20/18 06:30 Lymph # 2.0 K/mm3 (1.2-5.4) 08/20/18 06:30 [place] # 0.6 K/mm3 (0.0-0.8) 08/20/18 06:30 Eos # 0.1 K/mm3 (0.0-0.4) 08/20/18 06:30 Baso # 0.0 K/mm3 (0.0-0.1) 08/20/18 06:30 Add Manual Diff Complete 08/16/18 23:10 Total Counted 100 08/16/18 23:10 Seg Neutrophils % 54.7 % (40.0-70.0) 08/20/18 06:30 Seg Neuts % (Manual) 51.0 % (40.0-70.0) 08/16/18 23:10 Band Neutrophils % 3.0 % 08/16/18 23:10 Lymphocytes % (Manual) 39.0 % (13.4-35.0) H 08/16/18 23:10 Reactive Lymphs % (Man) 0 % 08/16/18 23:10 Monocytes % (Manual) 7.0 % (0.0-7.3) 08/16/18 23:10 Eosinophils % (Manual) 0 % (0.0-4.3) 08/16/18 23:10 Basophils % (Manual) 0 % (0.0-1.8) 08/16/18 23:10 Metamyelocytes % 0 % 08/16/18 23:10 Myelocytes % 0 % 08/16/18 23:10 Promyelocytes % 0 % 08/16/18 23:10 Blast Cells % 0 % 08/16/18 23:10 Nucleated RBC % Not Reportable 08/16/18 23:10 Seg Neutrophils # 3.2 K/mm3 (1.8-7.7) 08/20/18 06:30 Seg Neutrophils # Man 4.2 K/mm3 (1.8-7.7) 08/16/18 23:10 Band Neutrophils # 0.2 K/mm3 08/16/18 23:10 Lymphocytes # (Manual) 3.2 K/mm3 (1.2-5.4) 08/16/18 23:10 Abs React Lymphs (Man) 0.0 K/mm3 08/16/18 23:10 Monocytes # (Manual) 0.6 K/mm3 (0.0-0.8) 08/16/18 23:10 Eosinophils # (Manual) 0.0 K/mm3 (0.0-0.4) 08/16/18 23:10 Basophils # (Manual) 0.0 K/mm3 (0.0-0.1) 08/16/18 23:10 Metamyelocytes # 0.0 K/mm3 08/16/18 23:10 Myelocytes # 0.0 K/mm3 08/16/18 23:10 Promyelocytes # 0.0 K/mm3 08/16/18 23:10 Blast Cells # 0.0 K/mm3 08/16/18 23:10 WBC Morphology Not Reportable 08/16/18 23:10 Hypersegmented Neuts Not Reportable 08/16/18 23:10 Hyposegmented Neuts Not Reportable 08/16/18 23:10 Hypogranular Neuts Not Reportable 08/16/18 23:10 Smudge Cells Not Reportable 08/16/18 23:10 Toxic Granulation Not Reportable 08/16/18 23:10 Toxic Vacuolation Not Reportable 08/16/18 23:10 Dohle Bodies Not Reportable 08/16/18 23:10 Pelger-Huet Anomaly Not Reportable 08/16/18 23:10 Geovany Rods Not Reportable 08/16/18 23:10 Platelet Estimate Appears normal 08/16/18 23:10 Clumped Platelets Not Reportable 08/16/18 23:10 Plt Clumps, EDTA Not Reportable 08/16/18 23:10 Large Platelets Not Reportable 08/16/18 23:10 Giant Platelets Not Reportable 08/16/18 23:10 Platelet Satelliting Not Reportable 08/16/18 23:10 Plt Morphology Comment Not Reportable 08/16/18 23:10 RBC Morphology Not Reportable 08/16/18 23:10 Dimorphic RBCs Not Reportable 08/16/18 23:10 Polychromasia Not Reportable 08/16/18 23:10 Hypochromasia Not Reportable 08/16/18 23:10 Poikilocytosis Not Reportable 08/16/18 23:10 Anisocytosis 1+ 08/16/18 23:10 Microcytosis Not Reportable 08/16/18 23:10 Macrocytosis Not Reportable 08/16/18 23:10 Spherocytes Not Reportable 08/16/18 23:10 Pappenheimer Bodies Not Reportable 08/16/18 23:10 Sickle Cells Not Reportable 08/16/18 23:10 Target Cells Not Reportable 08/16/18 23:10 Tear Drop Cells Not Reportable 08/16/18 23:10 Ovalocytes Not Reportable 08/16/18 23:10 Helmet Cells Not Reportable 08/16/18 23:10 [place] Bodies Not Reportable 08/16/18 23:10 [place] Rings Not Reportable 08/16/18 23:10 [place] Cells Not Reportable 08/16/18 23:10 Bite Cells Not Reportable 08/16/18 23:10 Crenated Cell Not Reportable 08/16/18 23:10 Elliptocytes Not Reportable 08/16/18 23:10 Acanthocytes (Spur) Not Reportable 08/16/18 23:10 Rouleaux Not Reportable 08/16/18 23:10 Hemoglobin C Crystals Not Reportable 08/16/18 23:10 Schistocytes Not Reportable 08/16/18 23:10 Malaria parasites Not Reportable 08/16/18 23:10 Jl Bodies Not Reportable 08/16/18 23:10 Hem Pathologist Commnt No 08/16/18 23:10 PT 13.7 Sec. (12.2-14.9) 08/18/18 06:59 INR 1.01 (0.87-1.13) 08/18/18 06:59 APTT 47.2 Sec. (24.2-36.6) H 08/18/18 06:59 Activated Clotting Time 235 (74-137) H 08/16/18 23:54 Heparin Anti-Xa Level 0.50 U.I./ml (0.3-0.7) 08/18/18 06:59 Sodium 141 mmol/L (137-145) 08/20/18 06:30 Potassium 4.3 mmol/L (3.6-5.0) 08/20/18 06:30 Chloride 105.7 mmol/L (98-107) 08/20/18 06:30 Carbon Dioxide 26 mmol/L (22-30) 08/20/18 06:30 Anion Gap 14 mmol/L 08/20/18 06:30 BUN 14 mg/dL (9-20) 08/20/18 06:30 Creatinine 1.1 mg/dL (0.8-1.5) 08/20/18 06:30 Estimated GFR > 60 ml/min 08/20/18 06:30 BUN/Creatinine Ratio 13 % 08/20/18 06:30 Glucose 93 mg/dL (75-100) 08/20/18 06:30 POC Glucose 98 (70-105) 08/16/18 23:13 Calcium 8.8 mg/dL (8.4-10.2) 08/20/18 06:30 Magnesium 2.20 mg/dL (1.7-2.3) 08/18/18 09:26 Total Bilirubin 0.40 mg/dL (0.1-1.2) 08/18/18 09:26 AST 204 units/L (5-40) H 08/18/18 09:26 ALT 56 units/L (7-56) 08/18/18 09:26 Alkaline Phosphatase 104 units/L (35-129) 08/18/18 09:26 Total Creatine Kinase 1306 units/L (55-170) H 08/18/18 09:26 CK-MB (CK-2) 97.4 ng/mL (0.0-4.0) H 08/18/18 09:26 CK-MB (CK-2) Rel Index 7.4 (0-4) H 08/18/18 09:26 Troponin T 4.470 ng/mL (0.00-0.029) H* 08/18/18 09:26 Total Protein 6.5 g/dL (6.3-8.2) 08/18/18 09:26 Albumin 3.9 g/dL (3.9-5) 08/18/18 09:26 Albumin/Globulin Ratio 1.5 % 08/18/18 09:26 Triglycerides 57 mg/dL (2-149) 08/17/18 13:54 Cholesterol 152 mg/dL (50-199) 08/17/18 13:54 LDL Cholesterol Direct 107 mg/dL (50-130) 08/17/18 13:54 HDL Cholesterol 42 mg/dL (40-59) 08/17/18 13:54 Cholesterol/HDL Ratio 3.61 % 08/17/18 13:54 Urine Opiates Screen Presumptive negative 08/17/18 05:10 Urine Methadone Screen Presumptive negative 08/17/18 05:10 Ur Barbiturates Screen Presumptive negative 08/17/18 05:10 Ur Phencyclidine Scrn Presumptive negative 08/17/18 05:10 Ur Amphetamines Screen Presumptive negative 08/17/18 05:10 U Benzodiazepines Scrn Presumptive positive 08/17/18 05:10 Urine Cocaine Screen Presumptive negative 08/17/18 05:10 U Marijuana (THC) Screen Presumptive negative 08/17/18 05:10 Drugs of Abuse Note Disclamer 08/17/18 05:10
== END 2018-08-20 12:00 | disposition home or self-care (01) | DRG 271 ==
LOC: ED 22:56 → CC1 08-17 00:27 → 4A 08-19 12:55
PROVIDERS: ADMIT Internal Medicine; ATTEND Internal Medicine
PROC: 5A02210 Assistance with Cardiac Output using Balloon Pump, Continuous (ICD-10-PCS; principal; 2018-08-16)
PROC: 027034Z Dilation of Coronary Artery, One Artery with Drug-eluting Intraluminal Device, Percutaneous Approach (ICD-10-PCS; 2018-08-16)
PROC: B240ZZ3 Ultrasonography of Single Coronary Artery, Intravascular (ICD-10-PCS; 2018-08-16)
PROC: 4A023N7 Measurement of Cardiac Sampling and Pressure, Left Heart, Percutaneous Approach (ICD-10-PCS; 2018-08-16)
PROC: B2111ZZ Fluoroscopy of Multiple Coronary Arteries using Low Osmolar Contrast (ICD-10-PCS; 2018-08-16)
PROC: B2151ZZ Fluoroscopy of Left Heart using Low Osmolar Contrast (ICD-10-PCS; 2018-08-16)
DX: I21.09 ST elevation (STEMI) myocardial infarction involving other coronary artery of anterior wall (principal); E87.0 Hyperosmolality and hypernatremia; M62.82 Rhabdomyolysis; R00.1 Bradycardia, unspecified; I25.10 Atherosclerotic heart disease of native coronary artery without angina pectoris; I25.5 Ischemic cardiomyopathy; F17.210 Nicotine dependence, cigarettes, uncomplicated; E78.5 Hyperlipidemia, unspecified; Z71.6 Tobacco abuse counseling
CPT/HCPCS: 33210; 33967; 36415; 71045; 80048; 80053; 80061; 80307; 82550; 82553; 82962; 83735; 84484; 85007; 85014; 85018; 85025; 85347; 85520; 85610; 85730; 92941; 92978; 93005; 93010; 93306; 93458; 94760; 99406; G0378; A9270-GY; C1725; C1753; C1757; C1769; C1874; C1887; C1894; C9606; J0171; J0282; J0461; J1644; J2001; J2250; J2270; J2370; J2405; J3010; J3246; J7040; Q9967

== ENCOUNTER 2019-04-23 09:39 | Emergency (ER) | payer SELFPAY ==
[2019-04-23 09:42] VITALS: BP 130/66
--- NOTE | 2019-04-23 10:00 | Emergency Department Report ---
Suture/Staple Removal - HPI Chief Complaint: Laceration/Recheck/Suture Stated Complaint: REMOVE SUTURES Time Seen by Provider: 04/23/19 09:58 When Sutures or Michael Placed: 5-7 Days Ago Wound Location: 69 YO COMES TO ER FOR SUTURE REMOVAL FROM LEFT ARM. HEALING WELL. NO COMPLA ED Review of Systems ROS: Stated complaint: REMOVE SUTURES Other details as noted in HPI Comment: All other systems reviewed and negative ED Past Medical Hx - Past Medical History Hx Hypertension: No Hx Heart Attack/AMI: Yes (Pt. this admission STEMI, s/p surgical intervention See MD cardiology note) Hx Congestive Heart Failure: No Hx Diabetes: No Hx Deep Vein Thrombosis: No Hx Sickle Cell Disease: No Hx Asthma: No Hx COPD: No - Surgical History Hx Coronary Stent: No Hx Pacemaker: No Hx Internal Defibrillator: No - Family History Family history: no significant - Social History Smoking Status: Never Smoker Substance Use Type: None - Medications Home Medications: Home Medications Medication Instructions Recorded Confirmed Last Taken Type Cyclobenzaprine [Flexeril 10 MG 10 mg PO TID PRN #15 tablet 02/25/17 08/17/18 03/23/16 08:00 Rx TAB] 10 mg Acetaminophen [Tylenol Arthritis] 650 mg PO Q6H 08/17/18 08/17/18 Unknown History Aspirin EC 325 mg PO QDAY #30 tablet 08/20/18 Unknown Rx AtorvaSTATin [Lipitor] 40 mg PO QHS #30 tablet 08/20/18 Unknown Rx Clopidogrel [Plavix] 75 mg PO QDAY #30 tablet 08/20/18 Unknown Rx Metoprolol [Lopressor TAB] 12.5 mg PO BID #60 tablet 08/20/18 Unknown Rx Acetaminophen/Codeine [Tylenol 1 tab PO Q6H PRN #12 tab 04/13/19 Unknown Rx /Codeine # 3 tab] Sulfamethoxazole/Trimethoprim 1 each PO BID #14 tablet 04/13/19 Unknown Rx [Bactrim DS TAB] Suture Removal Exam - Exam General: Vital signs noted. No distress. Alert and acting appropriately. Wound: No Pathologic Erythema, No Tenderness, No Drainage, No Pus, No Wound Dehiscence Other Systems: All other systems reviewed and are unremarkable. ED Course Vital Signs 04/23/19 09:41 Temperature 97.9 F Pulse Rate 81 Respiratory 18 Rate Blood Pressure 130/66 [Left] O2 Sat by Pulse 97 Oximetry ED Recheck MDM - Core Measures Measure Exclusions: not indicated - Differential Diagnosis Suture/Staple Removal - Medical Decision Making simple suture removal healing well minor swelling wound care provided pt dc home with wound care instructions Vital Signs 04/23/19 09:41 Temperature 97.9 F Pulse Rate 81 Respiratory 18 Rate Blood Pressure 130/66 [Left] O2 Sat by Pulse 97 Oximetry Critical care attestation.: If time is entered above; I have spent that time in minutes in the direct care of this critically ill patient, excluding procedure time. ED Disposition Clinical Impression: Visit for suture removal Disposition: DC-01 TO HOME OR SELFCARE Is pt being admited?: No Does the pt Need Aspirin: No Condition: Stable Instructions: Suture Removal (ED) Additional Instructions: KEEP WOUND CLEAN AND DRY KEEP COVERED DURING THE DAY NO OINTMENTS FOLLOW UP WITH PCP IF ANY PROBLEMS DEVELOP Referrals: FALLON FOSTER MD [Staff Physician] - 3-5 Days Time of Disposition: 09:59
== END 2019-04-23 10:27 | disposition home or self-care (01) ==
LOC: ED 09:39
DX: S41.112D Laceration without foreign body of left upper arm, subsequent encounter (principal); W26.8XXD Contact with other sharp object(s), not elsewhere classified, subsequent encounter; Z79.899 Other long term (current) drug therapy
CPT/HCPCS: 99281